=== PATIENT | female | born 1950 | race Caucasian/White ===

== ENCOUNTER 2016-12-01 23:06 | Emergency (ER) | payer MEDICARE, MEDICAID ==
[~2016-12-01] VITALS: Ht 160 cm; Wt 63.5 kg
[~2016-12-01 23:06] MED LIST: AKWASOL OU; ASPI81TA85 PO; ASPI81TAEC PO; BETA2500 PO; CALC600T28 PO; CALCTAB41 PO; COMBAER6 INH; DEPA1TAB3 PO; DEPA500T2 PO; DESYREL; DEXI30CA PO; ERGO500014 PO; HYDR25TAB PO; ICAPCAP PO; LASI20TA PO; LEVO125T3 PO; LORA10TA2 PO; MAGN400C2 PO; MELA1LIQ PO; MUCI600T34 PO; MULTTAB63 PO; NORC10TA2 PO; NORT10CA2 PO; PAME25CA PO; PENT400T47 PO; REFR0.5D8 OU; ROBA750T4 PO; SERO1TAB PO; SUCR1SUS PO; SUCR1TA PO; SYMB16INH INH; TRAZADONE PO; TRENTAL; ZOCO20TA PO; ZOLO50TA PO
[2016-12-01] MEDS ORDERED: PAME25CA PO (23:24)
[2016-12-02] MEDS ORDERED: NORCO, ANEXSIA 5/325MG TABLET (HYDROcodone/ACETAMINOPHEN) PO ONE (00:45)
[2016-12-02 02:25] VITALS: BP 180/80
--- NOTE | 2016-12-02 09:31 | REP ---
RIGHT HAND COMPLETE: 12/01/2016. Clinical history: Trauma, index finger deformity. Findings: There is dislocation of the PIP joint of the second digit in the ulnar direction. There is no visible fracture. There are minor degenerative changes at some of the IP joints, first CMC joint and some of the carpal articulations. Impression: 1. Dislocation PIP joint with the middle phalanx dislocated in an ulnar direction with the peripheral margin of the proximal phalanx articulating with the radial aspect of the middle phalanx articular surface. No visible fracture. Signed by Michel Hernandez MD 12/02/2016 10:52 A
--- NOTE | 2016-12-02 09:33 | REP ---
RIGHT FINGER SERIES: 12/02/2016. Clinical history: Dislocation PIP joint 2nd digit, evaluate reduction. Findings: Four views of the hand with attention to the second digit shows that the dislocated PIP joint is reduced. There is no visible fracture or avulsion. There is soft tissue swelling around that PIP joint. No other interval change. Signed by Michel Hernandez MD 12/02/2016 10:52 A
== END 2016-12-02 02:29 | disposition home or self-care (01) ==
LOC: EDBD 23:06 → M ED 23:16
DX: S63.280A Dislocation of proximal interphalangeal joint of right index finger, initial encounter (principal); W19.XXXA Unspecified fall, initial encounter; Y92.89 Other specified places as the place of occurrence of the external cause; Y93.89 Activity, other specified; Y99.8 Other external cause status; I10 Essential (primary) hypertension; J44.9 Chronic obstructive pulmonary disease, unspecified; E03.9 Hypothyroidism, unspecified; E78.5 Hyperlipidemia, unspecified; K21.9 Gastro-esophageal reflux disease without esophagitis; G43.909 Migraine, unspecified, not intractable, without status migrainosus; Z88.5 Allergy status to narcotic agent; Z79.899 Other long term (current) drug therapy; Z79.82 Long term (current) use of aspirin; Z79.51 Long term (current) use of inhaled steroids

== ENCOUNTER 2016-12-19 08:43 | Outpatient (RCR) | payer MEDICARE, MEDICAID ==
[2016-12-21] MEDS ORDERED: LYRI100C10 PO (11:10)
[2016-12-21] MEDS ORDERED: COMBAER6 INH (11:10)
[2016-12-21] MEDS ORDERED: ALL10TAB27 PO (11:10)
[2016-12-21] MEDS ORDERED: HYDR12.55 PO (11:10)
[2016-12-21] MEDS ORDERED: DEXI60CA PO (11:10)
[2016-12-21] MEDS ORDERED: PERC5TAB6 PO (13:13)
== END 2016-12-23 ==
LOC: M OT 08:43
PROVIDERS: ATTEND Physician Assistant
DX: Z51.89 Encounter for other specified aftercare (principal); S63.280D Dislocation of proximal interphalangeal joint of right index finger, subsequent encounter; X58.XXXD Exposure to other specified factors, subsequent encounter; Y92.9 Unspecified place or not applicable; Y93.9 Activity, unspecified; Y99.9 Unspecified external cause status
CPT/HCPCS: 97165; G8984; G8985

== ENCOUNTER 2016-12-21 10:56 | Emergency (ER) | payer MEDICARE, MEDICAID ==
[~2016-12-21] VITALS: Ht 160 cm; Wt 63.5 kg
[2016-12-21] MEDS ORDERED: DEXI60CA PO (11:10)
[2016-12-21] MEDS ORDERED: COMBAER6 INH (11:10)
[2016-12-21] MEDS ORDERED: LYRI100C10 PO (11:10)
[2016-12-21] MEDS ORDERED: HYDR12.55 PO (11:10)
[2016-12-21] MEDS ORDERED: ALL10TAB27 PO (11:10)
--- NOTE | 2016-12-21 12:45 | REP ---
LEFT RIB SERIES: Four views of the left ribs are performed. There are nondisplaced fractures of the left 5th, 8th, and 9th ribs. No other rib fracture or bone lesion is seen. An accompanying view of the chest demonstrates no acute infiltrate or pneumothorax. IMPRESSION: Nondisplaced fractures left 5th, 8th, and 9th ribs. Signed by Stephen Hill MD 12/21/2016 04:39 P
[2016-12-21] MEDS ORDERED: PERC5TAB6 PO (13:13)
[2016-12-21 13:33] VITALS: BP 134/62
== END 2016-12-21 13:37 | disposition home or self-care (01) ==
LOC: M ED 12:04
DX: S22.42XA Multiple fractures of ribs, left side, initial encounter for closed fracture (principal); Y04.8XXA Assault by other bodily force, initial encounter; Y92.89 Other specified places as the place of occurrence of the external cause; Y93.89 Activity, other specified; Y99.8 Other external cause status; I10 Essential (primary) hypertension; Z88.5 Allergy status to narcotic agent; Z79.899 Other long term (current) drug therapy; Z79.82 Long term (current) use of aspirin; Z79.51 Long term (current) use of inhaled steroids

== ENCOUNTER → 2017-01-23 | Outpatient (RCR) | payer MEDICARE, MEDICAID ==
[~2017-01-23] MED LIST changes: +ALL10TAB27 PO; +DEXI60CA PO; +HYDR12.55 PO; +LYRI100C10 PO; +PERC5TAB6 PO
== END ==
LOC: M OT 12-24 08:40
PROVIDERS: ATTEND Physician Assistant
DX: Z51.89 Encounter for other specified aftercare (principal); Z47.89 Encounter for other orthopedic aftercare; S63.280D Dislocation of proximal interphalangeal joint of right index finger, subsequent encounter; X58.XXXD Exposure to other specified factors, subsequent encounter; Y92.9 Unspecified place or not applicable; Y93.9 Activity, unspecified; Y99.9 Unspecified external cause status
CPT/HCPCS: 97110; 97140; G8981; G8982

== ENCOUNTER 2017-02-06 08:09 | Outpatient (RCR) | payer MEDICARE, MEDICAID ==
[~2017-02-06 08:09] MED LIST changes: -DEXI30CA PO; +DEXI30CA2 PO; -DEXI60CA PO; +DEXI60CA2 PO; -LEVO125T3 PO; +LEVO125T4 PO; -LYRI100C10 PO; -MUCI600T34 PO; +MUCI600T37 PO; -NORC10TA2 PO; +NORC10TA21 PO; +PERC5TAB12 PO; -PERC5TAB6 PO; +PREG100CA PO
[2017-05-07] MEDS ORDERED: REFR0.5D8 OU (13:47)
[2017-05-07] MEDS ORDERED: HYDR25TAB PO (13:47)
[2017-05-07] MEDS ORDERED: OXYC1TAB23 PO (14:07)
== END 2017-02-22 | disposition home or self-care (01) ==
LOC: M OT 08:09
PROVIDERS: ATTEND Physician Assistant
DX: Z51.89 Encounter for other specified aftercare (principal); S63.280D Dislocation of proximal interphalangeal joint of right index finger, subsequent encounter; X58.XXXD Exposure to other specified factors, subsequent encounter; Y92.9 Unspecified place or not applicable; Y93.9 Activity, unspecified; Y99.9 Unspecified external cause status

== ENCOUNTER 2017-02-06 09:15 | Emergency (ER) | payer MEDICARE, MEDICAID ==
[~2017-02-06] VITALS: Ht 160 cm; Wt 67.9 kg
[~2017-02-06 09:15] MED LIST changes: +DEXI30CA PO; -DEXI30CA2 PO; +DEXI60CA PO; -DEXI60CA2 PO; +LEVO125T3 PO; -LEVO125T4 PO; +LYRI100C10 PO; +MUCI600T34 PO; -MUCI600T37 PO; +NORC10TA2 PO; -NORC10TA21 PO; -PERC5TAB12 PO; +PERC5TAB6 PO; -PREG100CA PO
[2017-02-06] MEDS ORDERED: NORCO, ANEXSIA 5/325MG TABLET (HYDROcodone/ACETAMINOPHEN) PO ONE (10:15)
[2017-02-06 10:46] VITALS: BP 138/72
== END 2017-02-06 10:47 | disposition home or self-care (01) ==
LOC: M ED 10:20
DX: K02.9 Dental caries, unspecified (principal); K08.89 Other specified disorders of teeth and supporting structures; I10 Essential (primary) hypertension; E03.9 Hypothyroidism, unspecified; J45.909 Unspecified asthma, uncomplicated; E78.00 Pure hypercholesterolemia, unspecified; Z79.899 Other long term (current) drug therapy; Z79.82 Long term (current) use of aspirin; Z79.51 Long term (current) use of inhaled steroids; Z88.5 Allergy status to narcotic agent

== ENCOUNTER 2017-03-19 09:45 | Outpatient (RCR) | payer MEDICARE, MEDICAID ==
[~2017-03-19 09:45] MED LIST changes: -DEXI30CA PO; +DEXI30CA2 PO; -DEXI60CA PO; +DEXI60CA2 PO; -LEVO125T3 PO; +LEVO125T4 PO; -LYRI100C10 PO; -MUCI600T34 PO; +MUCI600T37 PO; -NORC10TA2 PO; +NORC10TA21 PO; +PERC5TAB12 PO; -PERC5TAB6 PO; +PREG100CA PO
[2017-05-07] MEDS ORDERED: REFR0.5D8 OU (13:47)
[2017-05-07] MEDS ORDERED: HYDR25TAB PO (13:47)
[2017-05-07] MEDS ORDERED: OXYC1TAB23 PO (14:07)
== END 2017-03-25 ==
LOC: M OT 09:45
PROVIDERS: ATTEND Physician Assistant
DX: Z51.89 Encounter for other specified aftercare (principal); S63.280D Dislocation of proximal interphalangeal joint of right index finger, subsequent encounter; X58.XXXD Exposure to other specified factors, subsequent encounter; Y92.9 Unspecified place or not applicable; Y93.9 Activity, unspecified; Y99.9 Unspecified external cause status
CPT/HCPCS: 97168; G8984; G8985

== ENCOUNTER → 2017-04-08 | Outpatient (CLI) | payer MEDICARE, MEDICAID ==
[~2017-04-08] MED LIST changes: +AZIT-12 PO; +OXYC1TAB23 PO; +ZONI100C2 PO
--- NOTE | 2017-04-08 10:51 | REPMRS ---
Patient History The patient states she had a clinical breast exam in 03/2017. Patient is postmenopausal. Family history of breast cancer in niece. Digital Woman Screen Mammo: April 08, 2017 - Exam #: [id number] Bilateral CC and MLO view(s) were taken. Technologist: Cathleen Augustin, Technologist FINDINGS: There are scattered fibroglandular densities. There has been no change in the appearance of the mammogram from the prior studies. There is a mild amount of residual fibroglandular tissue which is fairly symmetric. There is no interval development of dominant mass, architectural distortion, or clustered microcalcification suggestive of malignancy. ASSESSMENT: BI-RADS/ACR category 1 mammogram. Negative. Recommendation Routine screening mammogram in 1 year (for women over age 40). This mammogram was interpreted with the aid of an FDA-approved computer-aided dectection system. Electronically Signed By: Stephen Hill MD 04/08/17 [id number]
== END ==
LOC: M WHC 09:25
PROVIDERS: ATTEND Nurse Practitioner Family
DX: Z12.31 Encounter for screening mammogram for malignant neoplasm of breast (principal); Z78.0 Asymptomatic menopausal state; Z12.4 Encounter for screening for malignant neoplasm of cervix; Z12.12 Encounter for screening for malignant neoplasm of rectum; R35.0 Frequency of micturition
CPT/HCPCS: 81002; 82270; 87088; 87186; G0101; G0123; G0202

== ENCOUNTER → 2017-04-08 | Outpatient (REF) | payer MEDICARE, MEDICAID ==
[~2017-04-08] MED LIST changes: -AZIT-12 PO; -ZONI100C2 PO
== END ==
LOC: M SFHCWAGY 10:19
PROVIDERS: ATTEND Nurse Practitioner Family
DX: Z01.419 Encounter for gynecological examination (general) (routine) without abnormal findings (principal); R35.0 Frequency of micturition

== ENCOUNTER 2017-04-09 08:40 | Outpatient (RCR) | payer MEDICARE, MEDICAID ==
[~2017-04-09 08:40] MED LIST changes: -OXYC1TAB23 PO
[2017-05-07] MEDS ORDERED: REFR0.5D8 OU (13:47)
[2017-05-07] MEDS ORDERED: HYDR25TAB PO (13:47)
[2017-05-07] MEDS ORDERED: OXYC1TAB23 PO (14:07)
[2017-07-04] MEDS ORDERED: ZONI100C2 PO (16:00)
[2017-07-04] MEDS ORDERED: AZIT-12 PO (18:47)
== END 2017-04-25 ==
LOC: M OT 08:40
PROVIDERS: ATTEND Physician Assistant
DX: Z51.89 Encounter for other specified aftercare (principal); S63.280D Dislocation of proximal interphalangeal joint of right index finger, subsequent encounter; X58.XXXD Exposure to other specified factors, subsequent encounter; Y92.9 Unspecified place or not applicable; Y93.9 Activity, unspecified; Y99.9 Unspecified external cause status
CPT/HCPCS: 97018; 97110; 97140; G8984; G8985; G8986

== ENCOUNTER → 2017-05-06 | Outpatient (CLI) | payer MEDICARE, MEDICAID ==
[~2017-05-06] MED LIST changes: +AZIT-12 PO; +OXYC1TAB23 PO; +ZONI100C2 PO
--- NOTE | 2017-05-06 12:00 | REP ---
MRI LUMBAR SPINE WITHOUT CONTRAST: 05/06/2017. COMPARISON: 06/30/2013, x-ray 08/28/2012. CLINICAL HISTORY: Low back pain with bilateral radicular symptoms and numbness both feet. TECHNIQUE: Axial T1 and T2 sequences with sagittal T1, T2 and STIR sequences provided. FINDINGS: The normal sagittal lordosis is slightly reduced as on the previous study. Disc space heights are slightly reduced and there is decreased disc water signal from L1-2 through L5-S1 as before. Only the L5-S1 level is spared in disc height. Lower thoracic levels maintain their disc heights. All vertebral body heights are maintained and only marrow signal abnormalities discogenic endplate change at L2-3 anteriorly and L3-4, minimally anteriorly. The conus terminates at L1-2 as before, T10-11, T11-12, T12-L1 disc bulges without spinal or foraminal stenosis At L1-2, mild disc bulge without spinal or foraminal stenosis. At L2-3, there is also mild broad-based disc bulge seen extending into the foramina but not causing central canal stenosis or foraminal stenosis At L3-L4, there is slight flattening of the ventral thecal sac and minimal disc bulge without spinal or foraminal stenosis. At L4-L5, broad-based disc bulge flattening ventral thecal sac. There is hypertrophic facet change. The central canal shows an adequate cross-sectional area and I do not see nerve root compression for those L4 nerve roots on either side. At L5-S1, there is a mild broad-based disc bulge with small central disc protrusion which abuts the thecal sac but does not abut or displace the S1 nerve roots in the central canal. The foramina shows the L5 roots without compression. IMPRESSION: 1. Diffuse disc bulges at L2-3 through L4-5 with mild impression on the thecal sac but no spinal or foraminal stenosis. 2. Disc bulge with small central disc protrusion and L5-S1 abutting the thecal sac but not causing some central canal stenosis or significant foraminal encroachment. Stable exam with no new findings. Signed by Michel Hernandez MD 05/06/2017 03:50 P
== END ==
LOC: M PLARAD 08:08
PROVIDERS: ATTEND Nurse Practitioner Family
DX: M70.60 Trochanteric bursitis, unspecified hip (principal); M79.1 Myalgia; M51.26 Other intervertebral disc displacement, lumbar region; M54.16 Radiculopathy, lumbar region; M46.1 Sacroiliitis, not elsewhere classified; M47.817 Spondylosis without myelopathy or radiculopathy, lumbosacral region; M51.36 Other intervertebral disc degeneration, lumbar region; Y93.9 Activity, unspecified

== ENCOUNTER 2017-05-13 12:30 | Outpatient (CLI) | payer MEDICARE, MEDICAID ==
[~2017-05-13] VITALS: Ht 160 cm; Wt 68.0 kg
[~2017-05-13 12:30] MED LIST changes: -AZIT-12 PO; +NS 1,000 ML IV ONE; -ZONI100C2 PO
[2017-05-13] MEDS ORDERED: PROPOFOL 200 MG/20 ML VIAL As Ordered ONE (14:13)
[2017-05-13] MEDS ORDERED: LIDOCAINE 2% INJ 100 MG/5 ML SDV (FOR ANES.) As Ordered ONE (14:13)
--- NOTE | 2017-05-13 14:26 | ROOR ---
Patient Name: Jigna Oates Procedure Date: 05/13/2017 1:53 PM Date of : 1950 Age: 67 [facility] Gender: Female Note Status: Finalized Procedure: Total Colonoscopy to Cecum Indications: High risk colon cancer surveillance: Personal history of colonic polyps, Last colonoscopy: 2014 Providers: Enrrique Case MD Referring MD: NELLY CHILDS NP Requesting Provider: Medicines: Monitored Anesthesia Care Complications: No immediate complications. Procedure: Pre-Anesthesia Assessment: - The heart rate, respiratory rate, oxygen saturations, blood pressure, adequacy of pulmonary ventilation, and response to care were monitored throughout the procedure. The Colonoscope was introduced through the anus and advanced to the cecum, identified by appendiceal orifice and ileocecal valve. The colonoscopy was performed without difficulty. The patient tolerated the procedure well. The quality of the bowel preparation was excellent. Findings: The perianal and digital rectal examinations were normal. Non-bleeding internal hemorrhoids were found during retroflexion. The hemorrhoids were small and Grade I (internal hemorrhoids that do not prolapse). No other significant abnormalities were identified in a careful examination of the remainder of the colon. The exam was otherwise without abnormality on direct and retroflexion views. Impression: - Non-bleeding internal hemorrhoids. - The examination was otherwise normal on direct and retroflexion views. - No specimens collected. - The exam was otherwise normal to the cecum. Recommendation: - Patient has a contact number available for emergencies. The signs and symptoms of potential delayed complications were discussed with the patient. Return to normal activities tomorrow. Written discharge instructions were provided to the patient. - High fiber diet. - Discharge patient to home. - Continue present medications. - Repeat colonoscopy in 5 years for surveillance. - Return to referring physician. - The findings and recommendations were discussed with the patient's family. Enrrique Case MD Enrrique Case MD 05/13/2017 2:26:18 PM This report has been signed electronically. Number of Addenda: 0 Note Initiated On: 05/13/2017 1:53 PM Estimated Blood Loss: Estimated blood loss: none.
[2017-05-13 15:08] VITALS: BP 139/76
[2017-07-04] MEDS ORDERED: ZONI100C2 PO (16:00)
[2017-07-04] MEDS ORDERED: AZIT-12 PO (18:47)
== END 2017-05-13 15:16 | disposition home or self-care (01) ==
LOC: M OPP 12:30
PROVIDERS: ATTEND Internal Medicine Gastroenterology
DX: Z12.11 Encounter for screening for malignant neoplasm of colon (principal); Z86.010 Personal history of colon polyps; K64.0 First degree hemorrhoids; I10 Essential (primary) hypertension; E78.5 Hyperlipidemia, unspecified; E03.9 Hypothyroidism, unspecified; R63.4 Abnormal weight loss; R10.11 Right upper quadrant pain; R12 Heartburn; M19.90 Unspecified osteoarthritis, unspecified site; M81.0 Age-related osteoporosis without current pathological fracture; F41.9 Anxiety disorder, unspecified; F32.9 Major depressive disorder, single episode, unspecified; G43.909 Migraine, unspecified, not intractable, without status migrainosus; Z78.0 Asymptomatic menopausal state; J45.909 Unspecified asthma, uncomplicated; K80.20 Calculus of gallbladder without cholecystitis without obstruction; Z87.440 Personal history of urinary (tract) infections; Z88.8 Allergy status to other drugs, medicaments and biological substances; Z79.82 Long term (current) use of aspirin; Z79.899 Other long term (current) drug therapy

== ENCOUNTER 2017-09-04 07:40 | Outpatient (CLI) | payer MEDICARE, MEDICAID ==
[2017-09-04] MEDS: ZOLEDRONIC ACID 5 MG in APPROPRIATE DILUENT 1 EA IV (08:08)
== END 2017-09-04 08:45 | disposition home or self-care (01) ==
LOC: M INFU 07:40
DX: M80.00XA Age-related osteoporosis with current pathological fracture, unspecified site, initial encounter for fracture (principal); Z88.5 Allergy status to narcotic agent; Z79.899 Other long term (current) drug therapy; Z79.82 Long term (current) use of aspirin
CPT/HCPCS: 96365

== ENCOUNTER → 2018-01-07 | Outpatient (CLI) | payer MEDICARE, MEDICAID ==
[~2018-01-07] MED LIST changes: -AKWASOL OU; -ALL10TAB27 PO; -ASPI81TA85 PO; -ASPI81TAEC PO; -BETA2500 PO; -CALC600T28 PO; -CALCTAB41 PO; -COMBAER6 INH; -DEPA1TAB3 PO; -DEPA500T2 PO; -DESYREL; -DEXI30CA2 PO; -DEXI60CA2 PO; -ERGO500014 PO; -HYDR12.55 PO; -HYDR25TAB PO; -ICAPCAP PO; -LASI20TA PO; -LEVO125T4 PO; -LORA10TA2 PO; -MAGN400C2 PO; -MELA1LIQ PO; +METHACHOLINE KIT (J7674) INH; -MUCI600T37 PO; -MULTTAB63 PO; -NORC10TA21 PO; -NORT10CA2 PO; -NS 1,000 ML IV ONE; -OXYC1TAB23 PO; -PAME25CA PO; -PENT400T47 PO; -PERC5TAB12 PO; -PREG100CA PO; -REFR0.5D8 OU; -ROBA750T4 PO; -SERO1TAB PO; -SUCR1SUS PO; -SUCR1TA PO; -SYMB16INH INH; -TRAZADONE PO; -TRENTAL; -ZOCO20TA PO; -ZOLO50TA PO
== END ==
LOC: M CARPUL 12:25
DX: R06.02 Shortness of breath (principal)
CPT/HCPCS: J7674

== ENCOUNTER 2018-03-29 10:27 | Emergency (ER) | payer MEDICARE, MEDICAID ==
[2018-03-29 12:39] LABS: BASO % 0.6 % (0.0-1.0); EOS # 0.2 10^3/uL (0.0-0.50); EOS % 3.5 % (0.0-3.0); HEMOGLOBIN 10.8 g/dl (12.0-15.5); IMMATURE GRANULOCYTE % 0.4 % (0-3.0); LYMPH # 1.7 10^3/uL (1.5-4.5); LYMPH % 32.6 % (24.0-44.0); MEAN CORPUSCULAR HEMOGLOBIN 23.4 pg (27.0-33.0); MEAN CORPUSCULAR HGB CONC 30.9 g/dl (32.0-36.5); MEAN CORPUSCULAR VOLUME 75.9 fl (80.0-96.0); MONO # 0.4 10^3/uL (0.0-0.8); MONO % 8.2 % (0.0-5.0); NEUTROPHILS # 2.8 10^3/uL (1.8-7.7); NEUTROPHILS % 54.7 % (36.0-66.0); PLATELET COUNT, AUTOMATED 259 10^3/uL (150-450); RED BLOOD COUNT 4.61 10^6/uL (4.00-5.40); RED CELL DISTRIBUTION WIDTH 18.4 % (11.5-14.5); WHITE BLOOD COUNT 5.1 10^3/uL (4.0-10.0)
[2018-03-29 13:09] LABS: ANION GAP 6 MEQ/L (8-16); BLOOD UREA NITROGEN 15 MG/DL (7-18); CALCIUM LEVEL 8.6 MG/DL (8.8-10.2); CARBON DIOXIDE LEVEL 26 MEQ/L (21-32); CHLORIDE LEVEL 112 MEQ/L (98-107); CREATININE FOR GFR 0.81 MG/DL (0.55-1.30); FERRITIN 15 NG/ML (8-252); GLOMERULAR FILTRATION RATE > 60.0 (>45); GLUCOSE, FASTING 86 MG/DL (70-100); IRON (FE) 33 UG/DL (50-170); PERCENT SATURATION 8.5 % (13.2-45.0); SODIUM LEVEL 144 MEQ/L (136-145); THYROID STIMULATING HORMONE 0.164 uIU/ML (0.358-3.740); THYROXINE (T4) 14.6 UG/DL (4.5-12.0); TOTAL IRON BINDING CAPACITY 389 UG/DL (250-450)
[2018-03-29] MEDS: CLINDAMYCIN 150 MG CAP PO (15:12)
[2018-03-29] MEDS: PERCOCET 5MG/325MG TAB PO (15:12)
== END 2018-03-29 15:17 | disposition home or self-care (01) ==
LOC: M ED 10:27
DX: K04.7 Periapical abscess without sinus (principal); K02.9 Dental caries, unspecified; I10 Essential (primary) hypertension; D50.9 Iron deficiency anemia, unspecified; E83.51 Hypocalcemia; J44.9 Chronic obstructive pulmonary disease, unspecified; E03.9 Hypothyroidism, unspecified; K21.9 Gastro-esophageal reflux disease without esophagitis; G43.909 Migraine, unspecified, not intractable, without status migrainosus; E78.5 Hyperlipidemia, unspecified; R01.1 Cardiac murmur, unspecified; Z79.899 Other long term (current) drug therapy; Z79.82 Long term (current) use of aspirin; Z79.890 Hormone replacement therapy; Z88.5 Allergy status to narcotic agent
CPT/HCPCS: 93005

== ENCOUNTER → 2018-04-22 | Outpatient (CLI) | payer MEDICARE, MEDICAID | LOC: M RAD 12:12 | DX: M79.604 Pain in right leg (principal); M79.605 Pain in left leg; I70.203 Unspecified atherosclerosis of native arteries of extremities, bilateral legs | CPT/HCPCS: 93925 ==

== ENCOUNTER 2018-04-29 10:24 | Day surgery (SDC) | payer MEDICARE, MEDICAID ==
[2018-04-29] MEDS: NS 1,000 ML IV (10:55)
[2018-04-29] MEDS ORDERED: PROPOFOL 200 MG/20 ML VIAL As Ordered (12:18)
[2018-04-29] MEDS ORDERED: LIDOCAINE 2% INJ 100 MG/5 ML SDV (FOR ANES.) As Ordered (12:41)
== END 2018-04-29 13:48 | disposition home or self-care (01) ==
LOC: M OPP 10:24
DX: K44.9 Diaphragmatic hernia without obstruction or gangrene (principal); D50.9 Iron deficiency anemia, unspecified; R13.10 Dysphagia, unspecified; I10 Essential (primary) hypertension; E78.00 Pure hypercholesterolemia, unspecified; E03.9 Hypothyroidism, unspecified; K21.9 Gastro-esophageal reflux disease without esophagitis; M54.5 Low back pain; M81.0 Age-related osteoporosis without current pathological fracture; G43.909 Migraine, unspecified, not intractable, without status migrainosus; J45.909 Unspecified asthma, uncomplicated; F32.9 Major depressive disorder, single episode, unspecified; Z79.82 Long term (current) use of aspirin; Z79.899 Other long term (current) drug therapy; Z88.8 Allergy status to other drugs, medicaments and biological substances; Z78.0 Asymptomatic menopausal state; Z87.440 Personal history of urinary (tract) infections; Z90.49 Acquired absence of other specified parts of digestive tract; Z87.19 Personal history of other diseases of the digestive system
CPT/HCPCS: 43239

== ENCOUNTER → 2018-05-14 | Outpatient (CLI) | payer MEDICARE, MEDICAID | LOC: M PAIN 13:30 | DX: M47.897 Other spondylosis, lumbosacral region (principal); E03.9 Hypothyroidism, unspecified; F32.9 Major depressive disorder, single episode, unspecified; G43.909 Migraine, unspecified, not intractable, without status migrainosus; E78.00 Pure hypercholesterolemia, unspecified; K21.9 Gastro-esophageal reflux disease without esophagitis; J44.9 Chronic obstructive pulmonary disease, unspecified; I34.0 Nonrheumatic mitral (valve) insufficiency; Z79.82 Long term (current) use of aspirin; Z79.891 Long term (current) use of opiate analgesic; Z79.899 Other long term (current) drug therapy; Z88.8 Allergy status to other drugs, medicaments and biological substances | CPT/HCPCS: G0463 ==

== ENCOUNTER 2018-06-04 15:57 | Emergency (ER) | payer MEDICARE, MEDICAID ==
[2018-06-04] MEDS: NORCO, ANEXSIA 5/325MG TABLET (HYDROcodone/ACETAMINOPHEN) PO (17:44)
== END 2018-06-04 18:28 | disposition home or self-care (01) ==
LOC: M ED 15:57
DX: S83.92XA Sprain of unspecified site of left knee, initial encounter (principal); W01.0XXA Fall on same level from slipping, tripping and stumbling without subsequent striking against object, initial encounter; Y92.018 Other place in single-family (private) house as the place of occurrence of the external cause; M54.5 Low back pain; I10 Essential (primary) hypertension; J44.9 Chronic obstructive pulmonary disease, unspecified; E78.9 Disorder of lipoprotein metabolism, unspecified; K21.9 Gastro-esophageal reflux disease without esophagitis; M19.90 Unspecified osteoarthritis, unspecified site; Z86.73 Personal history of transient ischemic attack (TIA), and cerebral infarction without residual deficits; Z79.899 Other long term (current) drug therapy; Z79.82 Long term (current) use of aspirin; Z79.890 Hormone replacement therapy; Z88.5 Allergy status to narcotic agent
CPT/HCPCS: 73564

== ENCOUNTER → 2018-06-11 | Outpatient (CLI) | payer MEDICARE, MEDICAID | LOC: M PAIN 10:15 | DX: Z53.29 Procedure and treatment not carried out because of patient's decision for other reasons (principal) ==

== ENCOUNTER → 2018-06-30 | Outpatient (REF) | payer MEDICARE, MEDICAID ==
[2018-06-30 13:42] LABS: HEMATOCRIT 40.2 % (36.0-47.0); HEMOGLOBIN 12.7 g/dl (12.0-15.5); MEAN CORPUSCULAR HEMOGLOBIN 25.6 pg (27.0-33.0); MEAN CORPUSCULAR HGB CONC 31.6 g/dl (32.0-36.5); PLATELET COUNT, AUTOMATED 143 10^3/uL (150-450); RED BLOOD COUNT 4.96 10^6/uL (4.00-5.40); RED CELL DISTRIBUTION WIDTH 17.4 % (11.5-14.5); WHITE BLOOD COUNT 5.8 10^3/uL (4.0-10.0)
[2018-06-30 14:57] LABS: ALBUMIN 3.7 GM/DL (3.2-5.2); ALBUMIN/GLOBULIN RATIO 0.97 (1.00-1.93); ALKALINE PHOSPHATASE 75 U/L (45-117); ALT/SGPT 23 U/L (12-78); ANION GAP 7 MEQ/L (8-16); AST/SGOT 22 U/L (7-37); BILIRUBIN,TOTAL 0.4 MG/DL (0.2-1.0); BLOOD UREA NITROGEN 14 MG/DL (7-18); CARBON DIOXIDE LEVEL 28 MEQ/L (21-32); CHLORIDE LEVEL 109 MEQ/L (98-107); CHOLESTEROL LEVEL 239 MG/DL (<200); CHOLESTEROL RISK RATIO 5.558 (<5); CREATININE FOR GFR 0.72 MG/DL (0.55-1.30); GLOMERULAR FILTRATION RATE > 60.0 (>45); GLUCOSE, FASTING 72 MG/DL (70-100); HDL CHOLESTEROL 43 MG/DL (>40); IRON (FE) 47 UG/DL (50-170); LDL CHOLESTEROL 164 MG/DL (<100); NON-HDL-C 196 MG/DL; PERCENT SATURATION 14.4 % (13.2-45.0); POTASSIUM SERUM 4.7 MEQ/L (3.5-5.1); SODIUM LEVEL 144 MEQ/L (136-145); TOTAL 25(OH) VITAMIN D 28.3 NG/ML (30.0-100.0); TOTAL IRON BINDING CAPACITY 327 UG/DL (250-450); TOTAL PROTEIN 7.5 GM/DL (6.4-8.2); TRIGLYCERIDES LEVEL 159 MG/DL (<150)
== END ==
LOC: M SFHCPLAZ 10:52
DX: D50.9 Iron deficiency anemia, unspecified (principal); I10 Essential (primary) hypertension; E78.5 Hyperlipidemia, unspecified; E55.9 Vitamin D deficiency, unspecified; Z23 Encounter for immunization
CPT/HCPCS: 83550

== ENCOUNTER 2018-09-10 07:15 | Outpatient (CLI) | payer MEDICARE, MEDICAID ==
[~2018-09-10] VITALS: Ht 160 cm; Wt 62.7 kg
[~2018-09-10 07:15] MED LIST changes: +AKWASOL OU; +ALL10TAB28 PO; +ASPI81TA85 PO; +ASPI81TAEC PO; +AZIT-12 PO; +BETA2500 PO; +CALC600T28 PO; +CALCTAB41 PO; +CLIN150C14 PO; +COMBAER6 INH; +DEPA1TAB3 PO; +DEPA500T2 PO; +DESYREL; +DEXI30CA2 PO; +DEXI60CA2 PO; +ENDO10TA8 PO; +ERGO500014 PO; +FERR325T3 PO; +HYDR12.55 PO; +HYDR25TAB PO; +ICAPCAP PO; +LASI20TA3 PO; +LEVO100T5 PO; +LEVO125T4 PO; +LORA-243 PO; +MAGN400C2 PO; +MECL-86 PO; +MELA1LIQ PO; -METHACHOLINE KIT (J7674) INH; +MUCI600T37 PO; +MULTTAB63 PO; +NORC10TA21 PO; +NORT10CA2 PO; +OXYC1TAB23 PO; +PAME25CA PO; +PENT400T47 PO; +PERC5TAB12 PO; +PREG100CA PO; +REFR0.5D8 OU; +ROBA750T4 PO; +SERO1TAB PO; +SUCR1SUS PO; +SUCR1TA PO; +SYMB16INH INH; +TRAZADONE PO; +TRENTAL; +ZOCO20TA PO; +ZOLO50TA PO; +ZONI100C2 PO
[2018-09-10 07:35] VITALS: BP 117/54
[2018-09-10] MEDS ORDERED: ZOLEDRONIC ACID 5 MG in APPROPRIATE DILUENT 1 EA IV ONE (08:00)
[2018-09-10] MEDS ORDERED: SYNT137T7 PO (08:08)
[2018-09-10] MEDS ORDERED: BUTR1DIS2 TOP (08:11)
[2018-09-10] MEDS ORDERED: DULO30CA PO (08:16)
[2018-09-10] MEDS ORDERED: ORPH-8 PO (08:18)
[2018-09-10] MEDS ORDERED: CETI10CH PO (08:18)
[2018-09-10 08:30] VITALS: BP 113/57
== END 2018-09-10 08:40 ==
LOC: M INFU 07:15
PROVIDERS: ATTEND Internal Medicine
DX: M81.0 Age-related osteoporosis without current pathological fracture (principal); Z88.5 Allergy status to narcotic agent
CPT/HCPCS: 96365; J3489

== ENCOUNTER → 2018-11-05 | Outpatient (CLI) | payer MEDICARE, MEDICAID ==
[~2018-11-05] MED LIST changes: +BUTR1DIS2 TOP; +CETI10CH PO; +DULO30CA PO; +ORPH-8 PO; +SYNT137T7 PO
--- NOTE | 2018-11-05 19:57 | REPMRS ---
Patient History The patient states she had a clinical breast exam in 11/11 Family history of breast cancer in niece. Digital Woman Screen Mammo: November 05, 2018 - Exam #: [id number] Bilateral CC and MLO view(s) were taken. Technologist: Luzma June, Technologist Prior study comparison: April 08, 2017, digital woman screen mammo performed at [facility]. April 10, 2011, digital bilateral screening mammo performed at [facility]. FINDINGS: There are scattered fibroglandular densities. There has been no change in the appearance of the mammogram from the prior studies. There is a mild amount of residual fibroglandular tissue which is fairly symmetric. There is no interval development of dominant mass, architectural distortion, or clustered microcalcification suggestive of malignancy. There are benign arterial calcifications noted. Large coarse benign appearing calcification is present and stable on the right. Scattered lymph nodes are seen in the right axilla. 3-D tomosynthesis shows no additional findings. No significant changes when compared with prior studies. Assessment: BI-RADS/ACR category 2 mammogram. Benign Findings. Recommendation Routine screening mammogram in 1 year (for women over age 40). This mammogram was interpreted with the aid of an FDA-approved computer-aided dectection system. A. Negative x-ray reports should not delay biopsy if a dominant or clinically suspicious mass is present. B. Four to eight percent of cancers are not identified by mammography. C. Adenosis and dense breast may obscure an underlying neoplasm. Electronically Signed By: Michel Hernandez MD 11/05/181955
== END ==
LOC: M WHC 14:31
PROVIDERS: ATTEND Nurse Practitioner Family
DX: Z12.31 Encounter for screening mammogram for malignant neoplasm of breast (principal); R92.1 Mammographic calcification found on diagnostic imaging of breast
CPT/HCPCS: 77063; 77067; G0463

== ENCOUNTER → 2018-12-01 | Outpatient (REF) | payer MEDICARE, MEDICAID ==
[~2018-12-01] MED LIST changes: -DULO30CA PO; +DULO30CA9 PO; -ERGO500014 PO; +HYDR-2541 PO; +LYRI200C PO; +NAPR500T6 PO; -NORC10TA21 PO; +NORC1TAB5 PO; -ORPH-8 PO; +ORPH100T2 PO; +ROBA500T PO; +VITA500045 PO
[2018-12-01 14:02] LABS: BLOOD UREA NITROGEN 12 MG/DL (7-18); CREATININE FOR GFR 0.81 MG/DL (0.55-1.30); GLOMERULAR FILTRATION RATE > 60.0 (>45)
== END ==
LOC: M LABDRAW1 12:44
PROVIDERS: ATTEND Physician Assistant
DX: M23.222 Derangement of posterior horn of medial meniscus due to old tear or injury, left knee (principal)

== ENCOUNTER 2018-12-04 11:14 | Emergency (ER) | payer MEDICARE, MEDICAID ==
[~2018-12-04] VITALS: Ht 160 cm; Wt 63.2 kg
[~2018-12-04 11:14] MED LIST changes: -LYRI200C PO; -NAPR500T6 PO; -ROBA500T PO
[2018-12-04] MEDS ORDERED: LYRI200C PO (11:31)
[2018-12-04] MEDS ORDERED: METHOCARBAMOL 500 MG TAB PO ONE (12:45)
[2018-12-04] MEDS ORDERED: KETOROLAC 60 MG/2 ML VIAL (J1885) IM ONE (13:00)
[2018-12-04] MEDS ORDERED: NAPR500T6 PO (13:33)
[2018-12-04] MEDS ORDERED: ROBA500T PO (13:33)
[2018-12-04 13:40] VITALS: BP 102/62
== END 2018-12-04 13:46 | disposition home or self-care (01) ==
LOC: M ED 11:14
DX: M62.830 Muscle spasm of back (principal); I10 Essential (primary) hypertension; M19.90 Unspecified osteoarthritis, unspecified site; F32.9 Major depressive disorder, single episode, unspecified; F41.9 Anxiety disorder, unspecified; E03.9 Hypothyroidism, unspecified; J44.9 Chronic obstructive pulmonary disease, unspecified; E78.5 Hyperlipidemia, unspecified; K21.9 Gastro-esophageal reflux disease without esophagitis; H35.30 Unspecified macular degeneration; Z88.5 Allergy status to narcotic agent; Z79.899 Other long term (current) drug therapy; Z79.82 Long term (current) use of aspirin; Z79.51 Long term (current) use of inhaled steroids
CPT/HCPCS: 96372; 99283; J1885

== ENCOUNTER 2019-01-10 08:24 | Emergency (ER) | payer MEDICARE, MEDICAID ==
[~2019-01-10] VITALS: Ht 160 cm; Wt 58.7 kg
[~2019-01-10 08:24] MED LIST changes: +LYRI200C PO; +NAPR500T6 PO; +ROBA500T PO
[2019-01-10] MEDS ORDERED: ATOR40TA75 (08:34)
[2019-01-10 09:19] LABS: BASO % 0.4 % (0.0-1.0); EOS # 0.3 10^3/uL (0.0-0.50); EOS % 6.1 % (0.0-3.0); HEMATOCRIT 39.6 % (36.0-47.0); HEMOGLOBIN 12.8 g/dl (12.0-15.5); LYMPH # 1.2 10^3/uL (1.5-4.5); MEAN CORPUSCULAR HEMOGLOBIN 28.4 pg (27.0-33.0); MEAN CORPUSCULAR HGB CONC 32.3 g/dl (32.0-36.5); MEAN CORPUSCULAR VOLUME 87.8 fl (80.0-96.0); MONO # 0.5 10^3/uL (0.0-0.8); MONO % 11.6 % (0.0-5.0); NEUTROPHILS # 2.6 10^3/uL (1.8-7.7); NEUTROPHILS % 55.7 % (36.0-66.0); PLATELET COUNT, AUTOMATED 171 10^3/uL (150-450); RED BLOOD COUNT 4.51 10^6/uL (4.00-5.40); WHITE BLOOD COUNT 4.6 10^3/uL (4.0-10.0)
[2019-01-10 09:31] LABS: INR 0.99; PROTHROMBIN TIME 13.2 SECONDS (12.1-14.4)
--- NOTE | 2019-01-10 09:41 | REP ---
REASON: Dizziness. COMPARISON: Multiple, the latest two view exam 06/24/2015 and frontal view exam 12/21/2016. There is a subtle right upper lobe patchy opacity. The cardiomediastinal silhouette is unchanged. The heart is not enlarged. Pleural angles are sharp. There is no change in the osseous structures. IMPRESSION: Possible early right upper lobe pneumonia. Electronically Signed by Lupillo Lyons DO 01/10/2019 10:33 A
[2019-01-10 09:48] LABS: BLOOD UREA NITROGEN 22 MG/DL (7-18); CALCIUM LEVEL 8.9 MG/DL (8.8-10.2); CARBON DIOXIDE LEVEL 28 MEQ/L (21-32); CHLORIDE LEVEL 109 MEQ/L (98-107); CPK CREATINE PHOSPHOKINASE 83 U/L (26-192); FREE T4 1.55 NG/DL (0.76-1.46); GLOMERULAR FILTRATION RATE > 60.0 (>45); GLUCOSE, FASTING 94 MG/DL (70-100); MAGNESIUM LEVEL 1.9 MG/DL (1.8-2.4); MB/CK RELATIVE INDEX 1.93 (< OR =4); SODIUM LEVEL 142 MEQ/L (136-145); THYROID STIMULATING HORMONE 0.158 uIU/ML (0.358-3.740); TROPONIN I < 0.02 NG/ML (< 0.10)
[2019-01-10 10:00] VITALS: BP 119/69
[2019-01-10] MEDS ORDERED: AZIT-12 PO (10:05)
[2019-01-10] MEDS ORDERED: AZITHROMYCIN 250 MG TAB PO ONE (10:15)
--- NOTE | 2019-01-10 17:54 | ECGEPIP ---
Stationary ECG Study [facility] - ED Test Date: 2019-01-10 Pat Name: ADAM SILVERMAN Department: Room: - Gender: F [employer] Operator: CHINSKY : 1950 Requested By: MIRIAM Wood Order Number: [id number] Reading MD: Alannah Khan Measurements Intervals [place] Rate: 59 P: 21 ME: 170 QRS: 17 QRSD: 91 T: 50 QT: 381 QTc: 378 Interpretive Statements SINUS BRADYCARDIA PRWP LOW VOLTAGE LIMB NSTTW ABNORMALITY SIMILAR 03/29/18 Electronically Signed On 01-10-2019 17:54:13 EDT by Alannah Khan
--- NOTE | 2019-01-13 14:40 | ED PDOC ---
Post-Departure Follow-Up santos florentino faxed formal report of cxr for fu Foster Bermudez MD January 13, 2019 14:40
== END 2019-01-10 10:14 | disposition home or self-care (01) ==
LOC: M ED 08:24
DX: K62.5 Hemorrhage of anus and rectum (principal); J18.9 Pneumonia, unspecified organism; R42 Dizziness and giddiness; R53.1 Weakness; I10 Essential (primary) hypertension; E78.9 Disorder of lipoprotein metabolism, unspecified; K21.9 Gastro-esophageal reflux disease without esophagitis; J45.909 Unspecified asthma, uncomplicated; J44.9 Chronic obstructive pulmonary disease, unspecified; D64.9 Anemia, unspecified; G43.909 Migraine, unspecified, not intractable, without status migrainosus; M81.0 Age-related osteoporosis without current pathological fracture; F41.9 Anxiety disorder, unspecified; F32.9 Major depressive disorder, single episode, unspecified; H35.30 Unspecified macular degeneration; Z87.19 Personal history of other diseases of the digestive system; Z88.5 Allergy status to narcotic agent; Z79.899 Other long term (current) drug therapy; Z79.82 Long term (current) use of aspirin

== ENCOUNTER → 2019-02-05 | Outpatient (REF) | payer MEDICARE, MEDICAID ==
[~2019-02-05] MED LIST changes: +ATOR40TA75
[2019-02-05 10:54] LABS: FREE T4 1.15 NG/DL (0.76-1.46); THYROID STIMULATING HORMONE 0.374 uIU/ML (0.358-3.740)
[2019-02-05 10:55] LABS: TOTAL 25(OH) VITAMIN D 35.1 NG/ML (30.0-100.0)
== END ==
LOC: M SFHCPLAZ 07:57
PROVIDERS: ATTEND Nurse Practitioner Family
DX: E03.9 Hypothyroidism, unspecified (principal); E55.9 Vitamin D deficiency, unspecified
CPT/HCPCS: 36415; 82306; 84439; 84443; G0463

== ENCOUNTER → 2019-02-18 | Outpatient (CLI) | payer MEDICARE, MEDICAID ==
--- NOTE | 2019-02-18 13:46 | REP ---
Clinical: Follow up pneumonia/infiltrate Comparison: 01/10/2019 . Technique: PA and lateral. Findings: The mediastinum and cardiac silhouette are normal. The lung keita are clear and without acute consolidation, effusion, or pneumothorax. Previously suspected right upper lobe infiltrate resolved. The skeletal structures are intact and normal. Impression: 1. No acute cardiopulmonary process. Electronically Signed by Brian Carmona MD 02/18/2019 01:38 P
== END ==
LOC: M RAD 11:38
PROVIDERS: ATTEND Nurse Practitioner Family
DX: J18.1 Lobar pneumonia, unspecified organism (principal)

== ENCOUNTER 2019-04-09 11:09 | Emergency (ER) | payer MEDICARE, MEDICAID ==
[~2019-04-09] VITALS: Ht 160 cm; Wt 59.5 kg
[2019-04-09] MEDS ORDERED: TRIA1OI TOP (13:01)
[2019-04-09] MEDS ORDERED: AUGM875T28 PO (13:01)
[2019-04-09 13:07] VITALS: BP 141/77
== END 2019-04-09 13:11 | disposition home or self-care (01) ==
LOC: M ED 11:09
DX: K02.9 Dental caries, unspecified (principal); L30.9 Dermatitis, unspecified; G43.909 Migraine, unspecified, not intractable, without status migrainosus; I10 Essential (primary) hypertension; J45.909 Unspecified asthma, uncomplicated; J44.9 Chronic obstructive pulmonary disease, unspecified; Z87.01 Personal history of pneumonia (recurrent); K21.9 Gastro-esophageal reflux disease without esophagitis; E03.9 Hypothyroidism, unspecified; M81.0 Age-related osteoporosis without current pathological fracture; F41.9 Anxiety disorder, unspecified; F32.9 Major depressive disorder, single episode, unspecified; H35.30 Unspecified macular degeneration; E78.00 Pure hypercholesterolemia, unspecified; Z79.82 Long term (current) use of aspirin; Z79.899 Other long term (current) drug therapy; Z88.5 Allergy status to narcotic agent

== ENCOUNTER 2019-05-22 18:47 | Emergency (ER) | payer MEDICARE, MEDICAID ==
[~2019-05-22] VITALS: Ht 160 cm; Wt 59.1 kg
[~2019-05-22 18:47] MED LIST changes: -ALL10TAB28 PO; +ALL10TAB29 PO; +AUGM875T28 PO; +TRIA1OI TOP
[2019-05-22] MEDS ORDERED: CYCL10TA PO (20:22)
[2019-05-22] MEDS ORDERED: CYCLOBENZAPRINE 5MG TABLET PO ONE (20:30)
[2019-05-22] MEDS ORDERED: KETOROLAC 60 MG/2 ML VIAL (J1885) IM ONE (20:30)
[2019-05-22 20:50] VITALS: BP 138/77
== END 2019-05-22 20:51 | disposition home or self-care (01) ==
LOC: M ED 18:47
DX: M54.6 Pain in thoracic spine (principal); I10 Essential (primary) hypertension; J44.9 Chronic obstructive pulmonary disease, unspecified; E03.9 Hypothyroidism, unspecified; E78.5 Hyperlipidemia, unspecified; F33.9 Major depressive disorder, recurrent, unspecified; F41.9 Anxiety disorder, unspecified; K21.9 Gastro-esophageal reflux disease without esophagitis; Z79.899 Other long term (current) drug therapy; Z79.890 Hormone replacement therapy; Z79.82 Long term (current) use of aspirin; Z88.5 Allergy status to narcotic agent
CPT/HCPCS: 96372; 99283; J1885

== ENCOUNTER → 2019-06-11 | Outpatient (REF) | payer MEDICARE, MEDICAID ==
[~2019-06-11] MED LIST changes: +CYCL10TA PO
== END ==
LOC: M LABDRAWP 09:59
PROVIDERS: ATTEND Internal Medicine
DX: E03.9 Hypothyroidism, unspecified (principal)

== ENCOUNTER 2019-06-20 12:26 | Emergency (ER) | payer MEDICARE, MEDICAID ==
[~2019-06-20] VITALS: Ht 160 cm; Wt 64.5 kg
[2019-06-20 12:27] VITALS: BP 135/58
[2019-06-20] MEDS ORDERED: SUCR1TA PO (12:51)
[2019-06-20] MEDS ORDERED: MELO15TA28 PO (12:51)
--- NOTE | 2019-06-20 14:19 | REP ---
LEFT RIB SERIES: Four views left ribs are performed. No fracture or bone lesion is seen. An accompanying view of the chest demonstrates no acute infiltrate, pneumothorax, or pleural effusion. The heart is normal in size. IMPRESSION: No evidence of left rib fracture or bone lesion. Electronically Signed by Stephen Hill MD 06/20/2019 05:16 P
== END 2019-06-20 13:30 | disposition home or self-care (01) ==
LOC: M ED 12:26
DX: S20.212A Contusion of left front wall of thorax, initial encounter (principal); W22.8XXA Striking against or struck by other objects, initial encounter; Y92.018 Other place in single-family (private) house as the place of occurrence of the external cause; Y93.83 Activity, rough housing and horseplay; I10 Essential (primary) hypertension; J44.9 Chronic obstructive pulmonary disease, unspecified; E07.9 Disorder of thyroid, unspecified; E78.9 Disorder of lipoprotein metabolism, unspecified; F33.9 Major depressive disorder, recurrent, unspecified; K21.9 Gastro-esophageal reflux disease without esophagitis; H35.30 Unspecified macular degeneration; Z79.899 Other long term (current) drug therapy; Z79.890 Hormone replacement therapy; Z79.82 Long term (current) use of aspirin; Z88.5 Allergy status to narcotic agent

== ENCOUNTER → 2019-07-01 | Outpatient (CLI) | payer MEDICARE, MEDICAID ==
[~2019-07-01] MED LIST changes: +MELO15TA28 PO
--- NOTE | 2019-07-01 17:07 | REP ---
Two views chest: 07/01/2019. Indication: Cough. Comparison: 06/20/2019. Findings: The lungs are clear. There is no pleural effusion or pneumothorax. Patient is status post cholecystectomy. The cardiac silhouette is not enlarged. Impression: Clear lungs. Electronically Signed by Augustus Solorio DO 07/01/2019 04:59 P
== END ==
LOC: M RAD 12:14
PROVIDERS: ATTEND Nurse Practitioner Family
DX: R05 Cough (principal)
CPT/HCPCS: 71046; G0463

== ENCOUNTER → 2019-08-11 | Outpatient (CLI) | payer MEDICARE, MEDICAID ==
[~2019-08-11] MED LIST changes: -BETA2500 PO; +BETA250027 PO
[2019-08-11 18:31] LABS: HEMATOCRIT 40.5 % (36.0-47.0); HEMOGLOBIN 12.5 g/dl (12.0-15.5); MEAN CORPUSCULAR HEMOGLOBIN 27.4 pg (27.0-33.0); MEAN CORPUSCULAR HGB CONC 30.9 g/dl (32.0-36.5); MEAN CORPUSCULAR VOLUME 88.6 fl (80.0-96.0); PLATELET COUNT, AUTOMATED 228 10^3/uL (150-450); RED BLOOD COUNT 4.57 10^6/uL (4.00-5.40)
[2019-08-11 19:00] LABS: ALBUMIN 3.7 GM/DL (3.2-5.2); ALT/SGPT 23 U/L (12-78); BILIRUBIN,TOTAL 0.4 MG/DL (0.2-1.0); BLOOD UREA NITROGEN 19 MG/DL (7-18); CALCIUM LEVEL 9.3 MG/DL (8.8-10.2); CARBON DIOXIDE LEVEL 29 MEQ/L (21-32); CHLORIDE LEVEL 108 MEQ/L (98-107); CHOLESTEROL LEVEL 124 MG/DL (<200); CHOLESTEROL RISK RATIO 2.695 (<5); CREATININE FOR GFR 0.94 MG/DL (0.55-1.30); GLOMERULAR FILTRATION RATE > 60.0 (>45); GLUCOSE, FASTING 80 MG/DL (70-100); HDL CHOLESTEROL 46 MG/DL (>40); IRON (FE) 67 UG/DL (50-170); LDL CHOLESTEROL 53 MG/DL (<100); NON-HDL-C 78 MG/DL; PERCENT SATURATION 22.7 % (13.2-45.0); POTASSIUM SERUM 4.6 MEQ/L (3.5-5.1); SODIUM LEVEL 143 MEQ/L (136-145); TOTAL IRON BINDING CAPACITY 295 UG/DL (250-450); TOTAL PROTEIN 6.9 GM/DL (6.4-8.2); TRIGLYCERIDES LEVEL 124 MG/DL (<150)
[2019-08-11 19:06] LABS: TOTAL 25(OH) VITAMIN D 34.2 NG/ML (30.0-100.0)
== END ==
LOC: M PLALAB 12:33
PROVIDERS: ATTEND Nurse Practitioner Family
DX: I10 Essential (primary) hypertension (principal); E78.5 Hyperlipidemia, unspecified; E55.9 Vitamin D deficiency, unspecified; D50.9 Iron deficiency anemia, unspecified

== ENCOUNTER → 2020-01-25 | Outpatient (CLI) | payer MEDICARE, MEDICAID ==
[~2020-01-25] MED LIST changes: +CYCL-707 PO; -CYCL10TA PO; +SUCR1ORA PO; -SUCR1SUS PO; +ZONI100C17 PO; -ZONI100C2 PO
--- NOTE | 2020-01-25 13:33 | REPPI ---
REASON: Atraumatic pain. PRIORS: None. FINDINGS: There is no acute fracture, dislocation, subluxation, or joint effusion. Electronically Signed by Lupillo Lyons DO 01/25/2020 05:11 P
== END ==
LOC: M PLAIMG 10:13
PROVIDERS: ATTEND Nurse Practitioner Family
DX: M25.521 Pain in right elbow (principal)
CPT/HCPCS: 73080; G0463

== ENCOUNTER → 2020-04-08 | Outpatient (CLI) | payer MEDICARE, MEDICAID ==
[~2020-04-08] MED LIST changes: -ALL10TAB29 PO; -ASPI81TA85 PO; +ASPI81TA86 PO; +CETI-24 PO
--- NOTE | 2020-04-26 11:38 | REPMRS ---
Patient History The patient states she had a clinical breast exam in March 2020.Patient is postmenopausal. Family history of breast cancer in niece. Digital Woman Screen Mammo: April 08, 2020 - Exam #: [id number] Bilateral CC and MLO view(s) were taken. Technologist: Katheryn Gonzalez, Technologist Prior study comparison: November 05, 2018, bilateral digital woman screen mammo performed at [facility]. April 08, 2017, digital woman screen mammo performed at [facility]. April 10, 2011, digital bilateral screening mammo performed at [facility]. FINDINGS: There are scattered fibroglandular densities. The Volpara volumetric breast density category is:B. There has been no change in the appearance of the mammogram from the prior studies. There is a mild amount of scattered fibroglandular density which is fairly symmetric. There is no interval development of dominant mass, architectural distortion, or grouped microcalcification suggestive of malignancy. 3-D tomosynthesis shows no additional findings. Assessment: BI-RADS/ACR category 1 mammogram. Negative Mammogram. Recommendation Routine screening mammogram of both breasts in 1 year (for women over age 40). This patient's Lifetime Breast Cancer Risk is estimated at 4.6 %. This mammogram was interpreted with the aid of an FDA-approved computer-aided dectection system. Electronically Signed By: Lam Mena MD 04/26/20 [id number]
== END ==
LOC: M WHC 15:09
PROVIDERS: ATTEND Nurse Practitioner Family
DX: Z01.419 Encounter for gynecological examination (general) (routine) without abnormal findings (principal); Z12.31 Encounter for screening mammogram for malignant neoplasm of breast; Z78.0 Asymptomatic menopausal state; Z80.3 Family history of malignant neoplasm of breast
CPT/HCPCS: 77063; 77067; G0101

== ENCOUNTER → 2020-06-23 | Outpatient (REF) | payer MEDICARE, MEDICAID ==
[2020-06-23 17:10] LABS: BLOOD UREA NITROGEN 23 MG/DL (7-18); CREATININE FOR GFR 0.92 MG/DL (0.55-1.30); GLUCOSE, FASTING 83 MG/DL (70-100)
[2020-06-23 17:11] LABS: ALBUMIN 3.7 GM/DL (3.2-5.2); ALT/SGPT 33 U/L (12-78); BILIRUBIN,TOTAL 0.6 MG/DL (0.2-1.0); CALCIUM LEVEL 9.5 MG/DL (8.8-10.2); CARBON DIOXIDE LEVEL 27 MEQ/L (21-32); CHLORIDE LEVEL 110 MEQ/L (98-107); CHOLESTEROL LEVEL 117 MG/DL (<200); CHOLESTEROL RISK RATIO 3.441 (<5); FERRITIN 143 NG/ML (8-252); GLOMERULAR FILTRATION RATE > 60.0 (>39); HDL CHOLESTEROL 34 MG/DL (>40); LDL CHOLESTEROL 58 MG/DL (<100); NON-HDL-C 83 MG/DL; POTASSIUM SERUM 4.6 MEQ/L (3.5-5.1); SODIUM LEVEL 143 MEQ/L (136-145); TOTAL PROTEIN 7.4 GM/DL (6.4-8.2); TRIGLYCERIDES LEVEL 126 MG/DL (<150)
[2020-06-23 17:16] LABS: TOTAL 25(OH) VITAMIN D 39.5 NG/ML (30.0-100.0)
[2020-06-23 17:28] LABS: HEMATOCRIT 44.2 % (36.0-47.0); HEMOGLOBIN 14.1 g/dl (12.0-15.5); MEAN CORPUSCULAR HEMOGLOBIN 27.6 pg (27.0-33.0); MEAN CORPUSCULAR HGB CONC 31.9 g/dl (32.0-36.5); MEAN CORPUSCULAR VOLUME 86.5 fl (80.0-96.0); PLATELET COUNT, AUTOMATED 216 10^3/uL (150-450); RED BLOOD COUNT 5.11 10^6/uL (4.00-5.40); WHITE BLOOD COUNT 6.8 10^3/uL (4.0-10.0)
[2020-06-23 17:50] LABS: MALB URINE SIEMENS 13.9 MG/L; MAU/CREAT RATIO 7.9 MCG/MG (0.0-30.0)
== END ==
LOC: M SFHCPLAZ 14:29
PROVIDERS: ATTEND Nurse Practitioner Family
DX: I10 Essential (primary) hypertension (principal); E78.5 Hyperlipidemia, unspecified; D50.9 Iron deficiency anemia, unspecified; E55.9 Vitamin D deficiency, unspecified

== ENCOUNTER → 2020-08-29 | Outpatient (REF) | payer MEDICARE, MEDICAID ==
[2020-08-29 16:58] LABS: CALCIUM LEVEL 9.6 MG/DL (8.8-10.2); CREATININE FOR GFR 1.06 MG/DL (0.55-1.30); GLOMERULAR FILTRATION RATE 54.6 (>39); POTASSIUM SERUM 4.2 MEQ/L (3.5-5.1)
[2020-08-29 17:09] LABS: TOTAL 25(OH) VITAMIN D 37.4 NG/ML (30.0-100.0)
== END ==
LOC: M PLALAB 14:03
PROVIDERS: ATTEND Nurse Practitioner Family
DX: E55.9 Vitamin D deficiency, unspecified (principal); I10 Essential (primary) hypertension; Z79.899 Other long term (current) drug therapy

== ENCOUNTER → 2021-03-08 | Outpatient (CLI) | payer MEDICARE, MEDICAID ==
[~2021-03-08] MED LIST changes: +ASPI-569 PO; -ASPI81TAEC PO; -CLIN150C14 PO; +CLIN150C15 PO; +HYDR-3490 PO; -HYDR25TAB PO
[2021-03-08 14:33] LABS: ALBUMIN 3.8 GM/DL (3.2-5.2); ALT/SGPT 27 U/L (12-78); BILIRUBIN,TOTAL 0.5 MG/DL (0.2-1.0); BLOOD UREA NITROGEN 16 MG/DL (7-18); CARBON DIOXIDE LEVEL 27 MEQ/L (21-32); CHLORIDE LEVEL 111 MEQ/L (98-107); CHOLESTEROL LEVEL 116 MG/DL (<200); CHOLESTEROL RISK RATIO 2.974 (<5); CREATININE FOR GFR 0.95 MG/DL (0.55-1.30); GLOMERULAR FILTRATION RATE > 60.0 (>39); GLUCOSE, FASTING 81 MG/DL (70-100); HDL CHOLESTEROL 39 MG/DL (>40); LDL CHOLESTEROL 52 MG/DL (<100); NON-HDL-C 77 MG/DL; POTASSIUM SERUM 4.2 MEQ/L (3.5-5.1); SODIUM LEVEL 142 MEQ/L (136-145); TOTAL 25(OH) VITAMIN D 37.9 NG/ML (30.0-100.0); TOTAL PROTEIN 6.9 GM/DL (6.4-8.2); TRIGLYCERIDES LEVEL 126 MG/DL (<150)
== END ==
LOC: M PLALAB 10:47
PROVIDERS: ATTEND Nurse Practitioner Family
DX: E55.9 Vitamin D deficiency, unspecified (principal); I10 Essential (primary) hypertension; E78.5 Hyperlipidemia, unspecified
CPT/HCPCS: 36415; 80053; 80061; 82306; G0463

== ENCOUNTER → 2021-08-16 | Outpatient (REF) | payer MEDICARE, MEDICAID ==
[~2021-08-16] MED LIST changes: +ASPI-161 PO; +ATOR40TA75 PO; +BELB75MI BU; +CALCD50TA PO; +CETI-14 PO; -CLIN150C15 PO; +CLIN150C17 PO; +D31000TA2 PO; +FERR32TA PO; +HYDR-3363 PO; +MOBI4TAB PO; +PANT40TA29 PO; +SYNT125T PO
== END ==
LOC: M SFHCPLAZ 16:49
PROVIDERS: ATTEND Physician Assistant
DX: R05.9 Cough, unspecified (principal)
CPT/HCPCS: 87426; 87804; 93005; G0463; U0003

== ENCOUNTER → 2021-08-17 | Outpatient (CLI) | payer MEDICARE, MEDICAID ==
[~2021-08-17] MED LIST changes: +PERCOCET PO; +PRED10TA2 PO
[2021-08-17 17:56] LABS: BASO # 0.1 10^3/uL (0.0-0.2); EOS # 0.3 10^3/uL (0.0-0.5); EOS % 4.9 % (0.0-3.0); HEMATOCRIT 42.3 % (36.0-47.0); HEMOGLOBIN 13.5 g/dl (12.0-15.5); LYMPH # 1.8 10^3/uL (1.5-5.0); LYMPH % 35.9 % (24.0-44.0); MEAN CORPUSCULAR HEMOGLOBIN 27.8 pg (27.0-33.0); MEAN CORPUSCULAR HGB CONC 31.9 g/dl (32.0-36.5); MONO # 0.8 10^3/uL (0.0-0.8); MONO % 15.6 % (2.0-8.0); NEUTROPHILS # 2.2 10^3/uL (1.5-8.5); NEUTROPHILS % 42.4 % (36.0-66.0); PLATELET COUNT, AUTOMATED 196 10^3/uL (150-450); RED BLOOD COUNT 4.86 10^6/uL (4.00-5.40); WHITE BLOOD COUNT 5.1 10^3/uL (4.0-10.0)
[2021-08-17 18:36] LABS: ALBUMIN 3.6 GM/DL (3.2-5.2); BILIRUBIN,TOTAL 0.7 MG/DL (0.2-1.0); CALCIUM LEVEL 9.3 MG/DL (8.8-10.2); CREATININE FOR GFR 1.08 MG/DL (0.55-1.30); FREE T4 1.87 NG/DL (0.76-1.46); GLOMERULAR FILTRATION RATE 53.2 (>39); POTASSIUM SERUM 4.5 MEQ/L (3.5-5.1); THYROID STIMULATING HORMONE 0.044 uIU/ML (0.358-3.740); TOTAL PROTEIN 6.8 GM/DL (6.4-8.2)
== END ==
LOC: M PLALAB 12:13
PROVIDERS: ATTEND Physician Assistant
DX: R42 Dizziness and giddiness (principal); Z79.899 Other long term (current) drug therapy

== ENCOUNTER 2021-08-31 12:08 | Inpatient (IN) | payer MEDICARE, MEDICAID ==
[~2021-08-31] VITALS: Ht 160 cm; Wt 79.0 kg
[~2021-08-31 12:08] MED LIST changes: -ASPI-161 PO; -ATOR40TA75 PO; -BELB75MI BU; -CALCD50TA PO; -CETI-14 PO; -D31000TA2 PO; -FERR32TA PO; -HYDR-3363 PO; -MOBI4TAB PO; -PANT40TA29 PO; -PERCOCET PO; -PRED10TA2 PO; -SYNT125T PO
[2021-08-31 13:20] LABS: HEMATOCRIT 37.7 % (36.0-47.0); HEMOGLOBIN 12.6 g/dl (12.0-15.5); MEAN CORPUSCULAR HEMOGLOBIN 28.2 pg (27.0-33.0); MEAN CORPUSCULAR HGB CONC 33.4 g/dl (32.0-36.5); MEAN CORPUSCULAR VOLUME 84.3 fl (80.0-96.0); RED BLOOD COUNT 4.47 10^6/uL (4.00-5.40); WHITE BLOOD COUNT 6.2 10^3/uL (4.0-10.0)
[2021-08-31] MEDS ORDERED: ACETAMINOPHEN TAB 650MG DOSE (2X325MG) PO ONE (13:25)
[2021-08-31] MEDS ORDERED: NS 1,000 ML IV ONE (13:25)
[2021-08-31 13:47] LABS: BILIRUBIN,DIRECT 0.3 MG/DL (0.0-0.2); BILIRUBIN,TOTAL 0.6 MG/DL (0.2-1.0); CALCIUM LEVEL 7.1 MG/DL (8.8-10.2); CREATININE FOR GFR 1.92 MG/DL (0.55-1.30); FREE T4 1.95 NG/DL (0.76-1.46); GLOMERULAR FILTRATION RATE 27.4 (>39); POTASSIUM SERUM 3.5 MEQ/L (3.5-5.1); THYROID STIMULATING HORMONE 0.013 uIU/ML (0.358-3.740); TOTAL PROTEIN 5.8 GM/DL (6.4-8.2)
[2021-08-31 13:49] LABS: PLATELET COUNT, AUTOMATED 93 10^3/uL (150-450)
[2021-08-31 13:54] LABS: LYMPHOCYTES 5 % (16-44); METAMYELOCYTES 2 % (0-0); NEUTROPHILS 64 % (28-66); PLATELET ESTIMATE DECREASED (NORMAL)
[2021-08-31] MEDS ORDERED: cefTRIAXone SOD 2 GM in D5W MINI-BAG PLUS 50 ML IV ONE (14:00)
[2021-08-31] MEDS ORDERED: fentaNYL 100 MCG/2 ML INJECTION (J3010) IV ONE ×3 (14:10→16:15)
[2021-08-31 14:19] LABS: CK-MB VALUE MASS 3.3 NG/ML (<3.6); MB/CK RELATIVE INDEX 0.56 (< OR =4)
[2021-08-31] MEDS ORDERED: LIDOCAINE 1% MDV 20ML VIAL SC ONE (15:20)
[2021-08-31] MEDS ORDERED: ACETAMINOPHEN TAB 650MG DOSE (2X325MG) PO PRN (15:55)
[2021-08-31] MEDS: NS 1,000 ML IV SCH (16:15)
[2021-08-31] MEDS ORDERED: ALBUTEROL 90 MCG/ACT 8GM HFA INHALER INH PRN (16:15)
[2021-08-31 16:31] LABS: RSV AMPLIFICATION NEGATIVE (NEGATIVE)
[2021-08-31 18:10] LABS: C REACTIVE PROTEIN QUANTITATIV 6.31 MG/DL (0.00-0.30)
[2021-08-31 18:15] LABS: PROTHROMBIN TIME 15.6 SECONDS (12.7-14.5)
[2021-08-31 18:16] LABS: FIBRINOGEN 364 MG/DL (268-480); PARTIAL THROMBOPLASTIN TIME 33.3 SECONDS (25.9-37.0)
[2021-08-31 18:36] LABS: D-DIMER QUANT > 4000 ng/ml (<500)
[2021-08-31] MEDS ORDERED: propofoL 200 MG/20 ML VIAL As Ordered ONE (19:55)
[2021-08-31] MEDS ORDERED: PHENYLephrine 500MCG 5ML (100MCG/ML) SYRINGE As Ordered ONE (19:55)
[2021-08-31] MEDS ORDERED: ePHEDrine SULFATE 25 MG/5 ML(5MG/ML) SYRINGE As Ordered ONE (19:55)
[2021-08-31] MEDS ORDERED: fentaNYL 100 MCG/2 ML INJECTION (J3010) As Ordered ONE (19:55)
[2021-08-31] MEDS ORDERED: LIDOCAINE 2% 100MG/5ML SDV (FOR ANES.) As Ordered ONE (19:55)
[2021-08-31] MEDS ORDERED: MIDAZOLAM INJ 2MG/2ML VIAL (J2250 PER 1MG) As Ordered ONE (19:55)
[2021-08-31] MEDS: DOXYCYCLINE HYCLATE 100 MG in D5W MINI-BAG PLUS 100 ML IV SCH (21:00)
[2021-09-01] VITALS (7 sets, daily range): BP systolic 91–152; BP diastolic 39–67; O2SAT 97
[2021-09-01] MEDS: NS 1,000 ML IV SCH ×3 (02:15→18:22)
[2021-09-01] MEDS: cefTRIAXone SOD 1 GM in D5W MINI-BAG PLUS 50 ML IV SCH ×2 (04:00→18:22)
[2021-09-01] MEDS ORDERED: CETI-14 PO (04:47)
[2021-09-01] MEDS ORDERED: BELB75MI BU (04:47)
[2021-09-01] MEDS ORDERED: CALCD50TA PO (04:47)
[2021-09-01] MEDS ORDERED: FERR32TA PO (04:47)
[2021-09-01] MEDS ORDERED: SYNT125T PO (04:47)
[2021-09-01] MEDS ORDERED: D31000TA2 PO (04:47)
[2021-09-01] MEDS ORDERED: ASPI-161 PO (04:47)
[2021-09-01] MEDS ORDERED: ATOR40TA75 PO (04:47)
[2021-09-01] MEDS ORDERED: HYDR-3363 PO (04:47)
[2021-09-01] MEDS ORDERED: MOBI4TAB PO (04:47)
[2021-09-01] MEDS ORDERED: PANT40TA29 PO (04:47)
[2021-09-01] MEDS ORDERED: HOME MED LIST COMPLETE! XX SCH (04:50)
[2021-09-01] MEDS ORDERED: MIDAZOLAM INJ 2MG/2ML VIAL (J2250 PER 1MG) IV PRN (07:01)
[2021-09-01] MEDS ORDERED: fentaNYL 100 MCG/2 ML INJECTION (J3010) IV PRN ×3 (07:01→18:35)
[2021-09-01 07:31] LABS: HEMATOCRIT 32.3 % (36.0-47.0); HEMOGLOBIN 10.5 g/dl (12.0-15.5); MEAN CORPUSCULAR HEMOGLOBIN 27.8 pg (27.0-33.0); MEAN CORPUSCULAR HGB CONC 32.5 g/dl (32.0-36.5); MEAN CORPUSCULAR VOLUME 85.4 fl (80.0-96.0); RED BLOOD COUNT 3.78 10^6/uL (4.00-5.40); WHITE BLOOD COUNT 14.5 10^3/uL (4.0-10.0)
[2021-09-01 07:39] LABS: PLATELET COUNT, AUTOMATED 75 10^3/uL (150-450)
[2021-09-01 07:57] LABS: ALBUMIN 2.4 GM/DL (3.2-5.2); BILIRUBIN,TOTAL 0.3 MG/DL (0.2-1.0); CALCIUM LEVEL 6.4 MG/DL (8.8-10.2); CREATININE FOR GFR 1.08 MG/DL (0.55-1.30); GLOMERULAR FILTRATION RATE 53.2 (>39); MAGNESIUM LEVEL 1.7 MG/DL (1.8-2.4); POTASSIUM SERUM 3.5 MEQ/L (3.5-5.1); TOTAL PROTEIN 5.1 GM/DL (6.4-8.2)
[2021-09-01] MEDS: ENOXAPARIN 40MG/0.4ML SYRINGE (J1650 PER 10MG) SC SCH ×2 (09:00→09:12)
[2021-09-01] MEDS ORDERED: NS 1,000 ML IV ONE (09:05)
[2021-09-01] MEDS: DOXYCYCLINE HYCLATE 100 MG in D5W MINI-BAG PLUS 100 ML IV SCH ×2 (09:12→20:49)
[2021-09-01] MEDS: BARICITINIB 2MG TABLET (OLUMIANT) FOR EUA PO SCH (10:16)
[2021-09-01] MEDS: dexameTHASONE 20MG/5ML VIAL (J1100 PER 1MG) IV SCH (10:16)
[2021-09-01] MEDS ORDERED: MAG SULF 1GM/100ML (MAG RUN) 1 GM in IV 1 EA IV ONE (11:00)
[2021-09-01] MEDS ORDERED: REMDESIVIR 200 MG in NS 250 ML IV ONE (12:00)
[2021-09-01] MEDS ORDERED: dexameTHASONE 10MG/1ML VIAL PRES.FREE (J1100 PER 1MG) XX ONE (12:45)
[2021-09-01] MEDS ORDERED: ROPIvacaine 0.5% 30ML INJECTION (J2795 PER 1MG) XX ONE (12:45)
[2021-09-01] MEDS ORDERED: LIDOCAINE 1% MDV 20ML VIAL XX ONE (12:45)
[2021-09-01] MEDS ORDERED: BUPIVACAINE/EPIN 0.25% 30 ML VIAL As Ordered ONE (12:50)
[2021-09-01] MEDS ORDERED: LIDOCAINE 2% 100MG/5ML SDV (FOR ANES.) As Ordered ONE (13:50)
[2021-09-01] MEDS ORDERED: propofoL 500 MG/50 ML VIAL As Ordered ONE (13:50)
[2021-09-01] MEDS ORDERED: SODIUM CHLORIDE 0.9% INJ 10 ML SYR IV ONE (14:00)
[2021-09-01] MEDS ORDERED: ONDANSETRON 4MG/2ML VIAL As Ordered ONE (15:43)
[2021-09-01] MEDS ORDERED: LR 1,000 ML IV SCH ×2 (15:50→18:35)
[2021-09-01] MEDS ORDERED: HYDROMORPHONE HCL 0.5 MG/ 0.5 ML SYRINGE (J1170 PER 1) IV PRN ×2 (15:50→18:35)
[2021-09-01] MEDS ORDERED: ONDANSETRON 4MG/2ML VIAL IV PRN ×2 (15:50→18:35)
[2021-09-01] MEDS ORDERED: oxyCODONE 5MG TAB PO PRN ×2 (15:50→18:35)
[2021-09-01] MEDS ORDERED: ACETAMINOPHEN TAB 650MG DOSE (2X325MG) PO PRN (18:35)
[2021-09-01] MEDS ORDERED: MORPHINE 4 MG/ML 1ML VIAL/SYRINGE (J2270) IV PRN (18:40)
[2021-09-01] MEDS: LR 1,000 ML IV SCH (21:42)
[2021-09-02] VITALS (12 sets, daily range): BP systolic 97–128; BP diastolic 51–63; O2SAT 85–95
[2021-09-02] MEDS: PERCOCET 5MG/325MG TAB PO PRN ×2 (00:21→09:42)
[2021-09-02] MEDS: cefTRIAXone SOD 1 GM in D5W MINI-BAG PLUS 50 ML IV SCH ×2 (04:09→16:01)
[2021-09-02 08:00] LABS: HEMATOCRIT 33.4 % (36.0-47.0); MEAN CORPUSCULAR HEMOGLOBIN 27.6 pg (27.0-33.0); MEAN CORPUSCULAR HGB CONC 32.9 g/dl (32.0-36.5); MEAN CORPUSCULAR VOLUME 83.7 fl (80.0-96.0); RED BLOOD COUNT 3.99 10^6/uL (4.00-5.40); WHITE BLOOD COUNT 9.9 10^3/uL (4.0-10.0)
[2021-09-02 08:03] LABS: PLATELET COUNT, AUTOMATED 83 10^3/uL (150-450)
[2021-09-02 08:09] LABS: INR 1.17; PARTIAL THROMBOPLASTIN TIME 33.4 SECONDS (25.9-37.0); PROTHROMBIN TIME 15.3 SECONDS (12.7-14.5)
[2021-09-02] MEDS: DOXYCYCLINE HYCLATE 100 MG in D5W MINI-BAG PLUS 100 ML IV SCH ×3 (08:37→20:03)
[2021-09-02] MEDS: BARICITINIB 2MG TABLET (OLUMIANT) FOR EUA PO SCH ×2 (08:38→09:00)
[2021-09-02] MEDS: dexameTHASONE 20MG/5ML VIAL (J1100 PER 1MG) IV SCH ×2 (08:38→09:00)
[2021-09-02] MEDS: LR 1,000 ML IV SCH (08:39)
[2021-09-02 08:53] LABS: ALBUMIN 2.3 GM/DL (3.2-5.2); ALT/SGPT 29 U/L (12-78); BILIRUBIN,DIRECT 0.2 MG/DL (0.0-0.2); BILIRUBIN,TOTAL 0.4 MG/DL (0.2-1.0); BLOOD UREA NITROGEN 20 MG/DL (7-18); CALCIUM LEVEL 6.9 MG/DL (8.8-10.2); CARBON DIOXIDE LEVEL 19 MEQ/L (21-32); CHLORIDE LEVEL 120 MEQ/L (98-107); CREATININE FOR GFR 0.87 MG/DL (0.55-1.30); FERRITIN 918 NG/ML (8-252); GLOMERULAR FILTRATION RATE > 60.0 (>39); GLUCOSE, FASTING 129 MG/DL (70-100); LDH LACTATE DEHYDROGENASE 477 U/L (84-246); NT-PRO BNP 2118 PG/ML (<125); POTASSIUM SERUM 3.9 MEQ/L (3.5-5.1); SODIUM LEVEL 149 MEQ/L (136-145); TOTAL PROTEIN 5.7 GM/DL (6.4-8.2)
[2021-09-02] MEDS: ASPIRIN 81MG ENTERIC TABLET PO SCH (11:06)
[2021-09-02] MEDS ORDERED: REMDESIVIR 100 MG in NS 250 ML IV SCH (12:00)
[2021-09-02] MEDS ORDERED: SODIUM CHLORIDE 0.9% INJ 10 ML SYR IV SCH (13:00)
[2021-09-02 14:08] LABS: MYCOPLASMA PNEUMONIAE IgG 299 U/mL (0-99); MYCOPLASMA PNEUMONIAE IgM <770 U/mL (0-769)
[2021-09-02] MEDS: ACETAMINOPHEN TAB 650MG DOSE (2X325MG) PO PRN (16:58)
[2021-09-02] MEDS ORDERED: ONDANSETRON 4MG/2ML VIAL IV PRN (23:30)
[2021-09-03] VITALS (8 sets, daily range): BP systolic 101–133; BP diastolic 64–72; O2SAT 86–95
[2021-09-03] MEDS: cefTRIAXone SOD 1 GM in D5W MINI-BAG PLUS 50 ML IV SCH ×2 (04:23→16:54)
[2021-09-03 07:42] LABS: HEMOGLOBIN 11.3 g/dl (12.0-15.5); MEAN CORPUSCULAR HEMOGLOBIN 28.1 pg (27.0-33.0); MEAN CORPUSCULAR HGB CONC 34.2 g/dl (32.0-36.5); MEAN CORPUSCULAR VOLUME 82.1 fl (80.0-96.0); PLATELET COUNT, AUTOMATED 115 10^3/uL (150-450); RED BLOOD COUNT 4.02 10^6/uL (4.00-5.40); WHITE BLOOD COUNT 8.8 10^3/uL (4.0-10.0)
[2021-09-03 08:09] LABS: ALBUMIN 2.5 GM/DL (3.2-5.2); ALT/SGPT 31 U/L (12-78); BILIRUBIN,TOTAL 0.5 MG/DL (0.2-1.0); BLOOD UREA NITROGEN 27 MG/DL (7-18); CALCIUM LEVEL 7.4 MG/DL (8.8-10.2); CARBON DIOXIDE LEVEL 23 MEQ/L (21-32); CHLORIDE LEVEL 117 MEQ/L (98-107); CREATININE FOR GFR 0.74 MG/DL (0.55-1.30); GLOMERULAR FILTRATION RATE > 60.0 (>39); GLUCOSE, FASTING 106 MG/DL (70-100); MAGNESIUM LEVEL 2.2 MG/DL (1.8-2.4); POTASSIUM SERUM 3.3 MEQ/L (3.5-5.1); SODIUM LEVEL 149 MEQ/L (136-145)
[2021-09-03] MEDS: DOXYCYCLINE HYCLATE 100 MG in D5W MINI-BAG PLUS 100 ML IV SCH ×2 (08:22→20:35)
[2021-09-03] MEDS: ASPIRIN 81MG ENTERIC TABLET PO SCH (08:22)
[2021-09-03] MEDS: FERROUS GLUCONATE 324 MG TAB PO SCH (09:00)
[2021-09-03] MEDS: ATORVASTATIN 20 MG TAB PO SCH (09:00)
[2021-09-03] MEDS ORDERED: ISOVUE-370 76% 100ML VIAL As Ordered ONE (10:38)
[2021-09-03] MEDS ORDERED: LORazepam 2 MG/ML VIAL IV STA (11:23)
[2021-09-03] MEDS ORDERED: MELOXICAM (MOBIC) 7.5 MG TAB PO PRN (12:30)
[2021-09-03] MEDS ORDERED: POLYVINYL ALCOHOL OPHTH SOLN 15 ML(LIQUITEARS) OU PRN (12:30)
[2021-09-03] MEDS: NS 0.45% 1,000 ML IV SCH ×2 (12:45→20:41)
[2021-09-03] MEDS: ENOXAPARIN 40MG/0.4ML SYRINGE (J1650 PER 10MG) SC SCH (12:45)
[2021-09-03] MEDS: CALCIUM/VITAMIN D 500 MG TAB PO SCH (14:02)
[2021-09-03] MEDS: hydrOXYzine 50 MG TAB PO SCH (20:35)
[2021-09-03] MEDS: PANTOPRAZOLE 40MG TAB (PROTONIX) PO SCH (20:35)
[2021-09-03] MEDS: ZONISAMIDE 100 MG CAP (ZONEGRAN) PO SCH (20:35)
[2021-09-03] MEDS: PREGABALIN 100 MG CAP (LYRICA) PO SCH (20:35)
[2021-09-04] VITALS: O2SAT 95
[2021-09-04] MEDS: cefTRIAXone SOD 1 GM in D5W MINI-BAG PLUS 50 ML IV SCH (03:22)
[2021-09-04 04:00] VITALS: BP 117/71; O2SAT 95
[2021-09-04] MEDS: LEVOTHYROXINE 125MCG TABLET (0.125MG) PO SCH (05:34)
[2021-09-04 06:34] LABS: HEMATOCRIT 29.7 % (36.0-47.0); HEMOGLOBIN 10.1 g/dl (12.0-15.5); MEAN CORPUSCULAR HEMOGLOBIN 27.8 pg (27.0-33.0); MEAN CORPUSCULAR VOLUME 81.8 fl (80.0-96.0); PLATELET COUNT, AUTOMATED 120 10^3/uL (150-450); RED BLOOD COUNT 3.63 10^6/uL (4.00-5.40); WHITE BLOOD COUNT 6.7 10^3/uL (4.0-10.0)
[2021-09-04 06:46] LABS: INR 1.25; PARTIAL THROMBOPLASTIN TIME 30.7 SECONDS (25.9-37.0); PROTHROMBIN TIME 16.1 SECONDS (12.7-14.5)
[2021-09-04 07:00] LABS: ALBUMIN 2.3 GM/DL (3.2-5.2); ALT/SGPT 30 U/L (12-78); BILIRUBIN,DIRECT 0.3 MG/DL (0.0-0.2); BILIRUBIN,TOTAL 0.5 MG/DL (0.2-1.0); BLOOD UREA NITROGEN 21 MG/DL (7-18); CALCIUM LEVEL 7.5 MG/DL (8.8-10.2); CARBON DIOXIDE LEVEL 24 MEQ/L (21-32); CHLORIDE LEVEL 114 MEQ/L (98-107); CREATININE FOR GFR 0.68 MG/DL (0.55-1.30); FERRITIN 604 NG/ML (8-252); GLOMERULAR FILTRATION RATE > 60.0 (>39); GLUCOSE, FASTING 86 MG/DL (70-100); LDH LACTATE DEHYDROGENASE 515 U/L (84-246); MAGNESIUM LEVEL 2.2 MG/DL (1.8-2.4); NT-PRO BNP 1814 PG/ML (<125); POTASSIUM SERUM 3.1 MEQ/L (3.5-5.1); SODIUM LEVEL 144 MEQ/L (136-145); TOTAL PROTEIN 5.3 GM/DL (6.4-8.2)
[2021-09-04] MEDS ORDERED: POTASSIUM CHLORIDE 10MEQ SR TABLET PO ONE ×2 (09:00→12:00)
[2021-09-04] MEDS: ENOXAPARIN 40MG/0.4ML SYRINGE (J1650 PER 10MG) SC SCH (09:40)
[2021-09-04] MEDS: CALCIUM/VITAMIN D 500 MG TAB PO SCH (09:40)
[2021-09-04] MEDS: PREGABALIN 100 MG CAP (LYRICA) PO SCH ×2 (09:40→20:49)
[2021-09-04] MEDS: PANTOPRAZOLE 40MG TAB (PROTONIX) PO SCH ×2 (09:40→20:49)
[2021-09-04] MEDS: CETIRIZINE (ZyrTEC) 10 MG TAB PO SCH (09:40)
[2021-09-04] MEDS: ASPIRIN 81MG ENTERIC TABLET PO SCH (09:40)
[2021-09-04] MEDS: ATORVASTATIN 20 MG TAB PO SCH (09:40)
[2021-09-04] MEDS: FERROUS GLUCONATE 324 MG TAB PO SCH (09:40)
[2021-09-04] MEDS: VITAMIN D 1,000 INTERNATIONAL UNITS TABLET PO SCH (09:40)
[2021-09-04] MEDS: PERCOCET 5MG/325MG TAB PO PRN (09:44)
[2021-09-04] MEDS: CEFDINIR 300 MG CAP (OMNICEF) PO SCH ×2 (11:12→20:49)
[2021-09-04 12:00] VITALS: O2SAT 94
[2021-09-04 14:00] VITALS: BP 117/61
[2021-09-04] MEDS: DOXYCYCLINE HYCLATE 100MG TABLET PO SCH (18:18)
[2021-09-04] MEDS: ACETAMINOPHEN TAB 650MG DOSE (2X325MG) PO PRN (18:18)
[2021-09-04 20:00] VITALS: BP 114/57; O2SAT 93
[2021-09-04] MEDS: ZONISAMIDE 100 MG CAP (ZONEGRAN) PO SCH (20:49)
[2021-09-04] MEDS: hydrOXYzine 50 MG TAB PO SCH (20:49)
[2021-09-05] VITALS: O2SAT 94
[2021-09-05] MEDS: PERCOCET 5MG/325MG TAB PO PRN (03:06)
[2021-09-05 04:00] VITALS: O2SAT 94
[2021-09-05 06:00] VITALS: BP 108/52
[2021-09-05] MEDS: LEVOTHYROXINE 125MCG TABLET (0.125MG) PO SCH (06:05)
[2021-09-05] MEDS: DOXYCYCLINE HYCLATE 100MG TABLET PO SCH ×2 (06:05→17:32)
[2021-09-05 06:15] LABS: HEMATOCRIT 27.7 % (36.0-47.0); HEMOGLOBIN 9.2 g/dl (12.0-15.5); MEAN CORPUSCULAR HEMOGLOBIN 27.5 pg (27.0-33.0); MEAN CORPUSCULAR HGB CONC 33.2 g/dl (32.0-36.5); MEAN CORPUSCULAR VOLUME 82.9 fl (80.0-96.0); PLATELET COUNT, AUTOMATED 122 10^3/uL (150-450); RED BLOOD COUNT 3.34 10^6/uL (4.00-5.40)
[2021-09-05 06:33] LABS: ALBUMIN 2.2 GM/DL (3.2-5.2); ALT/SGPT 29 U/L (12-78); BILIRUBIN,TOTAL 0.7 MG/DL (0.2-1.0); BLOOD UREA NITROGEN 22 MG/DL (7-18); CALCIUM LEVEL 7.7 MG/DL (8.8-10.2); CARBON DIOXIDE LEVEL 22 MEQ/L (21-32); CHLORIDE LEVEL 117 MEQ/L (98-107); CREATININE FOR GFR 0.71 MG/DL (0.55-1.30); GLOMERULAR FILTRATION RATE > 60.0 (>39); GLUCOSE, FASTING 83 MG/DL (70-100); MAGNESIUM LEVEL 1.8 MG/DL (1.8-2.4); POTASSIUM SERUM 3.6 MEQ/L (3.5-5.1); SODIUM LEVEL 146 MEQ/L (136-145); TOTAL PROTEIN 5.3 GM/DL (6.4-8.2)
[2021-09-05] MEDS: PANTOPRAZOLE 40MG TAB (PROTONIX) PO SCH ×2 (09:08→20:51)
[2021-09-05] MEDS: FERROUS GLUCONATE 324 MG TAB PO SCH (09:08)
[2021-09-05] MEDS: PREGABALIN 100 MG CAP (LYRICA) PO SCH ×2 (09:08→20:51)
[2021-09-05] MEDS: ASPIRIN 81MG ENTERIC TABLET PO SCH (09:08)
[2021-09-05] MEDS: CALCIUM/VITAMIN D 500 MG TAB PO SCH (09:08)
[2021-09-05] MEDS: VITAMIN D 1,000 INTERNATIONAL UNITS TABLET PO SCH (09:08)
[2021-09-05] MEDS: CEFDINIR 300 MG CAP (OMNICEF) PO SCH ×2 (09:08→20:50)
[2021-09-05] MEDS: ATORVASTATIN 20 MG TAB PO SCH (09:08)
[2021-09-05] MEDS: CETIRIZINE (ZyrTEC) 10 MG TAB PO SCH (09:08)
[2021-09-05] MEDS: ENOXAPARIN 40MG/0.4ML SYRINGE (J1650 PER 10MG) SC SCH (09:10)
[2021-09-05] MEDS: ACETAMINOPHEN TAB 650MG DOSE (2X325MG) PO PRN (12:01)
[2021-09-05] MEDS ORDERED: FUROSEMIDE 40MG/4ML VIAL (J1940) IV ONE (12:15)
[2021-09-05] MEDS: dexameTHASONE 20MG/5ML VIAL (J1100 PER 1MG) IV SCH (12:35)
[2021-09-05 14:00] VITALS: BP 105/58
[2021-09-05 18:21] VITALS: O2SAT 94
[2021-09-05 20:00] VITALS: BP 105/56
[2021-09-05] MEDS: ZONISAMIDE 100 MG CAP (ZONEGRAN) PO SCH (20:51)
[2021-09-05] MEDS: hydrOXYzine 50 MG TAB PO SCH (20:51)
[2021-09-06] VITALS: BP 112/56
[2021-09-06] MEDS: PERCOCET 5MG/325MG TAB PO PRN (02:07)
[2021-09-06 04:00] VITALS: BP 109/60
[2021-09-06] MEDS: DOXYCYCLINE HYCLATE 100MG TABLET PO SCH (05:35)
[2021-09-06] MEDS: LEVOTHYROXINE 125MCG TABLET (0.125MG) PO SCH (05:35)
[2021-09-06 08:32] LABS: INR 1.21; PROTHROMBIN TIME 15.7 SECONDS (12.7-14.5)
[2021-09-06 08:55] LABS: ALBUMIN 2.6 GM/DL (3.2-5.2); BILIRUBIN,DIRECT 0.3 MG/DL (0.0-0.2); BILIRUBIN,TOTAL 0.8 MG/DL (0.2-1.0); TOTAL PROTEIN 5.7 GM/DL (6.4-8.2)
[2021-09-06] MEDS: PREGABALIN 100 MG CAP (LYRICA) PO SCH (09:39)
[2021-09-06] MEDS: ATORVASTATIN 20 MG TAB PO SCH (09:39)
[2021-09-06] MEDS: FERROUS GLUCONATE 324 MG TAB PO SCH (09:40)
[2021-09-06] MEDS: CEFDINIR 300 MG CAP (OMNICEF) PO SCH (09:40)
[2021-09-06] MEDS: ASPIRIN 81MG ENTERIC TABLET PO SCH (09:40)
[2021-09-06] MEDS: VITAMIN D 1,000 INTERNATIONAL UNITS TABLET PO SCH (09:40)
[2021-09-06] MEDS: PANTOPRAZOLE 40MG TAB (PROTONIX) PO SCH (09:40)
[2021-09-06] MEDS: dexameTHASONE 20MG/5ML VIAL (J1100 PER 1MG) IV SCH (09:41)
[2021-09-06] MEDS: CALCIUM/VITAMIN D 500 MG TAB PO SCH (09:41)
[2021-09-06] MEDS: ENOXAPARIN 40MG/0.4ML SYRINGE (J1650 PER 10MG) SC SCH (09:41)
[2021-09-06] MEDS: CETIRIZINE (ZyrTEC) 10 MG TAB PO SCH (09:41)
[2021-09-06 10:00] VITALS: BP 137/63
[2021-09-06] MEDS ORDERED: PRED10TA2 PO (10:00)
[2021-09-06] MEDS ORDERED: PERCOCET PO (10:02)
[2021-09-06] MEDS ORDERED: REMDESIVIR 100 MG in NS 250 ML IV SCH (18:00)
[2021-09-06] MEDS ORDERED: SODIUM CHLORIDE 0.9% INJ 10 ML SYR IV SCH (18:00)
== END 2021-09-06 16:20 | disposition home health service (06) | DRG 853 ==
LOC: M ED 12:08 → M ED INP 15:51 → M 4MAIN 09-01 17:10
PROVIDERS: ADMIT Internal Medicine; ATTEND Internal Medicine Nephrology
PROC: 0SSFXZZ Reposition Right Ankle Joint, External Approach (ICD-10-PCS; 2021-08-31)
PROC: 0QSJ0ZZ Reposition Right Fibula, Open Approach (ICD-10-PCS; principal; 2021-09-01 13:00)
PROC: XW033E5 Introduction of Remdesivir Anti-infective into Peripheral Vein, Percutaneous Approach, New Technology Group 5 (ICD-10-PCS; 2021-09-05)
PROC: 3E0333Z Introduction of Anti-inflammatory into Peripheral Vein, Percutaneous Approach (ICD-10-PCS; 2021-09-05)
DX: A41.9 Sepsis, unspecified organism (principal); J12.82 Pneumonia due to coronavirus disease 2019; J15.9 Unspecified bacterial pneumonia; U07.1 COVID-19; N17.9 Acute kidney failure, unspecified; E87.1 Hypo-osmolality and hyponatremia; R55 Syncope and collapse; E86.0 Dehydration; R65.20 Severe sepsis without septic shock; E78.5 Hyperlipidemia, unspecified; G89.29 Other chronic pain; S82.851A Displaced trimalleolar fracture of right lower leg, initial encounter for closed fracture; G40.909 Epilepsy, unspecified, not intractable, without status epilepticus; D50.9 Iron deficiency anemia, unspecified; Z79.82 Long term (current) use of aspirin; Z79.899 Other long term (current) drug therapy; Z88.5 Allergy status to narcotic agent; W18.30XA Fall on same level, unspecified, initial encounter; Y92.009 Unspecified place in unspecified non-institutional (private) residence as the place of occurrence of the external cause; Y93.89 Activity, other specified; Y99.8 Other external cause status

== ENCOUNTER → 2021-09-14 | Outpatient (CLI) | payer MEDICARE, MEDICAID ==
[~2021-09-14] MED LIST changes: +ASPI-161 PO; +ATOR40TA75 PO; +BELB75MI BU; +CALCD50TA PO; +CETI-14 PO; +D31000TA2 PO; +FERR32TA PO; +HYDR-3363 PO; +MOBI4TAB PO; +PANT40TA29 PO; +PERCOCET PO; +PRED10TA2 PO; +SYNT125T PO
== END ==
LOC: M SOG 15:32
PROVIDERS: ATTEND Orthopaedic Surgery
DX: Z47.89 Encounter for other orthopedic aftercare (principal)

== ENCOUNTER → 2021-09-26 | Outpatient (CLI) | payer MEDICARE, MEDICAID | LOC: M SOG 08:45 | PROVIDERS: ATTEND Orthopaedic Surgery | DX: S82.851D Displaced trimalleolar fracture of right lower leg, subsequent encounter for closed fracture with routine healing (principal); W18.30XD Fall on same level, unspecified, subsequent encounter; Y92.009 Unspecified place in unspecified non-institutional (private) residence as the place of occurrence of the external cause ==

== ENCOUNTER → 2021-10-10 | Outpatient (CLI) | payer MEDICARE, MEDICAID | LOC: M SOG 08:41 | PROVIDERS: ATTEND Orthopaedic Surgery | DX: S82.851D Displaced trimalleolar fracture of right lower leg, subsequent encounter for closed fracture with routine healing (principal); W18.30XD Fall on same level, unspecified, subsequent encounter ==

== ENCOUNTER → 2021-10-24 | Outpatient (CLI) | payer MEDICARE, MEDICAID ==
[~2021-10-24] MED LIST changes: -D31000TA2 PO; +VITA100093 PO
== END ==
LOC: M SOG 08:01
PROVIDERS: ATTEND Orthopaedic Surgery
DX: S82.851D Displaced trimalleolar fracture of right lower leg, subsequent encounter for closed fracture with routine healing (principal); W18.30XD Fall on same level, unspecified, subsequent encounter

== ENCOUNTER → 2022-03-20 | Outpatient (CLI) | payer MEDICARE, MEDICAID ==
[~2022-03-20] MED LIST changes: +SIMV-253 PO; -ZOCO20TA PO; -ZONI100C17 PO; +ZONI100C67 PO
[2022-03-20 16:02] LABS: BASO # 0.1 10^3/uL (0.0-0.2); BASO % 1.1 % (0.0-1.0); EOS # 0.2 10^3/uL (0.0-0.5); EOS % 3.2 % (0.0-3.0); HEMATOCRIT 40.3 % (36.0-47.0); HEMOGLOBIN 12.9 g/dl (12.0-15.5); LYMPH # 2.3 10^3/uL (1.5-5.0); LYMPH % 43.6 % (24.0-44.0); MEAN CORPUSCULAR HEMOGLOBIN 28.5 pg (27.0-33.0); MONO # 0.5 10^3/uL (0.0-0.8); MONO % 9.1 % (2.0-8.0); NEUTROPHILS # 2.3 10^3/uL (1.5-8.5); PLATELET COUNT, AUTOMATED 161 10^3/uL (150-450); RED BLOOD COUNT 4.53 10^6/uL (4.00-5.40); WHITE BLOOD COUNT 5.3 10^3/uL (4.0-10.0)
[2022-03-20 16:15] LABS: BILIRUBIN,TOTAL 0.6 MG/DL (0.2-1.0); CALCIUM LEVEL 9.4 MG/DL (8.8-10.2); CHOLESTEROL RISK RATIO 2.755 (<5); CREATININE FOR GFR 1.09 MG/DL (0.55-1.30); FREE T4 0.75 NG/DL (0.76-1.46); GLOMERULAR FILTRATION RATE 52.5 (>39); POTASSIUM SERUM 3.9 MEQ/L (3.5-5.1); THYROID STIMULATING HORMONE 7.08 uIU/ML (0.358-3.740); TOTAL PROTEIN 7.5 GM/DL (6.4-8.2)
[2022-03-20 17:28] LABS: TOTAL 25(OH) VITAMIN D 31.7 NG/ML (30.0-100.0)
== END ==
LOC: M PLALAB 12:33
PROVIDERS: ATTEND Nurse Practitioner Family
DX: M51.36 Other intervertebral disc degeneration, lumbar region (principal); M47.816 Spondylosis without myelopathy or radiculopathy, lumbar region; K59.00 Constipation, unspecified; E78.5 Hyperlipidemia, unspecified; I10 Essential (primary) hypertension; E03.9 Hypothyroidism, unspecified; E55.9 Vitamin D deficiency, unspecified; D50.9 Iron deficiency anemia, unspecified; M54.9 Dorsalgia, unspecified; Z79.899 Other long term (current) drug therapy

== ENCOUNTER 2022-04-23 10:15 | Emergency (ER) | payer MEDICARE, MEDICAID ==
[~2022-04-23] VITALS: Ht 160 cm; Wt 67.7 kg
[2022-04-23] MEDS ORDERED: diphenhydrAMINE 50MG/ML VIAL (J1200) IV STA (10:29)
[2022-04-23] MEDS ORDERED: FAMOTIDINE 20MG/2ML VIAL IVP ONE (10:30)
[2022-04-23] MEDS ORDERED: dexameTHASONE 20MG/5ML VIAL (J1100 PER 1MG) IV ONE (10:30)
[2022-04-23 11:25] VITALS: BP 130/65
[2022-04-23] MEDS ORDERED: ACETAMINOPHEN TAB 650MG DOSE (2X325MG) PO ONE (11:30)
== END 2022-04-23 11:37 | disposition home or self-care (01) ==
LOC: M ED 10:15
DX: S60.463A Insect bite (nonvenomous) of left middle finger, initial encounter (principal); W57.XXXA Bitten or stung by nonvenomous insect and other nonvenomous arthropods, initial encounter; Z88.8 Allergy status to other drugs, medicaments and biological substances
CPT/HCPCS: 96374; 96375; 99284; J1100; J1200

== ENCOUNTER → 2022-04-25 | Outpatient (RCR) | payer MEDICARE, MEDICAID | LOC: M PT 04-17 08:16 | PROVIDERS: ATTEND Nurse Practitioner Family | DX: M54.9 Dorsalgia, unspecified (principal) ==

== ENCOUNTER 2022-05-23 09:53 | Outpatient (RCR) | payer MEDICARE, MEDICAID | END 2022-05-25 | LOC: M PT 09:53 | PROVIDERS: ATTEND Nurse Practitioner Family | DX: M54.9 Dorsalgia, unspecified (principal) ==

== ENCOUNTER 2022-06-13 10:00 | Outpatient (RCR) | payer MEDICARE, MEDICAID | END 2022-06-25 | LOC: M PT 10:00 | PROVIDERS: ATTEND Nurse Practitioner Family | DX: M54.9 Dorsalgia, unspecified (principal) ==

== ENCOUNTER 2022-09-30 22:41 | Emergency (ER) | payer MEDICARE, MEDICAID ==
[~2022-09-30] VITALS: Ht 160 cm; Wt 72.4 kg
[~2022-09-30 22:41] MED LIST changes: +AJOV225I; +ALBU8.5H; +LEVO112T2; +MELO7.5T35
[2022-10-01 02:27] VITALS: BP 138/65
== END 2022-10-01 05:39 | disposition left against medical advice (07) ==
LOC: M ED 22:41
DX: Z53.21 Procedure and treatment not carried out due to patient leaving prior to being seen by health care provider (principal)

== ENCOUNTER → 2022-10-04 | Outpatient (CLI) | payer MEDICARE, MEDICAID | LOC: M LABSMTC 09:11 | PROVIDERS: ATTEND Anesthesiology | DX: Z01.812 Encounter for preprocedural laboratory examination (principal); Z20.822 Contact with and (suspected) exposure to COVID-19 ==

== ENCOUNTER 2022-10-08 08:56 | Day surgery (SDC) | payer MEDICARE, MEDICAID ==
[~2022-10-08] VITALS: Ht 160 cm; Wt 68.9 kg
[~2022-10-08 08:56] MED LIST changes: +NS 1,000 ML IV ONE
[2022-10-08] MEDS ORDERED: LIDOCAINE 2% 100MG/5ML SDV (FOR ANES.) As Ordered ONE (10:36)
[2022-10-08] MEDS ORDERED: propofoL 200 MG/20 ML VIAL As Ordered ONE (10:36)
[2022-10-08 11:15] VITALS: BP 155/78
== END 2022-10-08 13:26 | disposition home or self-care (01) ==
LOC: M OPP 08:56
PROVIDERS: ATTEND Internal Medicine Gastroenterology
DX: Z86.010 Personal history of colon polyps (principal); K64.0 First degree hemorrhoids; K57.30 Diverticulosis of large intestine without perforation or abscess without bleeding; I10 Essential (primary) hypertension; E03.9 Hypothyroidism, unspecified; E78.00 Pure hypercholesterolemia, unspecified; G43.909 Migraine, unspecified, not intractable, without status migrainosus; D50.9 Iron deficiency anemia, unspecified; Z79.02 Long term (current) use of antithrombotics/antiplatelets; Z79.1 Long term (current) use of non-steroidal anti-inflammatories (NSAID); Z79.51 Long term (current) use of inhaled steroids; Z79.82 Long term (current) use of aspirin; Z79.890 Hormone replacement therapy; Z79.899 Other long term (current) drug therapy; Z88.5 Allergy status to narcotic agent

== ENCOUNTER → 2022-11-14 | Outpatient (CLI) | payer MEDICARE, MEDICAID ==
[~2022-11-14] MED LIST changes: -NS 1,000 ML IV ONE
[2022-11-14 11:53] LABS: CALCIUM LEVEL 9.1 MG/DL (8.3-10.6); CREATININE FOR GFR 0.98 MG/DL (0.55-1.30); GLOMERULAR FILTRATION RATE 59.4 (>39); POTASSIUM SERUM 4.8 MMOL/L (3.5-5.1)
[2022-11-14 11:57] LABS: TOTAL 25(OH) VITAMIN D 43.7 NG/ML (20.0-100.0)
== END ==
LOC: M PLALAB 07:55
PROVIDERS: ATTEND Internal Medicine
DX: E55.9 Vitamin D deficiency, unspecified (principal)

== ENCOUNTER → 2022-11-14 | Outpatient (CLI) | payer MEDICARE, MEDICAID ==
[2022-11-14 11:49] LABS: BASO % 0.6 % (0.0-1.0); EOS # 0.2 10^3/uL (0.0-0.5); EOS % 3.7 % (0.0-3.0); HEMATOCRIT 40.7 % (36.0-47.0); HEMOGLOBIN 13.2 g/dl (12.0-15.5); LYMPH # 3.1 10^3/uL (1.5-5.0); LYMPH % 47.1 % (24.0-44.0); MEAN CORPUSCULAR HEMOGLOBIN 28.6 pg (27.0-33.0); MEAN CORPUSCULAR HGB CONC 32.4 g/dl (32.0-36.5); MEAN CORPUSCULAR VOLUME 88.1 fl (80.0-96.0); MONO # 0.6 10^3/uL (0.0-0.8); MONO % 9.7 % (2.0-8.0); NEUTROPHILS # 2.5 10^3/uL (1.5-8.5); NEUTROPHILS % 38.7 % (36.0-66.0); PLATELET COUNT, AUTOMATED 184 10^3/uL (150-450); RED BLOOD COUNT 4.62 10^6/uL (4.00-5.40); WHITE BLOOD COUNT 6.5 10^3/uL (4.0-10.0)
[2022-11-14 11:58] LABS: ALBUMIN 3.7 G/DL (3.2-5.2); BILIRUBIN,TOTAL 0.6 MG/DL (0.3-1.2); CALCIUM LEVEL 9.2 MG/DL (8.3-10.6); CHOLESTEROL RISK RATIO 2.55 (<5); FERRITIN 122.7 NG/ML (7.3-270.7); HDL CHOLESTEROL 40.3 MG/DL (>40); LDL CHOLESTEROL 45.1 MG/DL (<100); NON-HDL-C 62.7 MG/DL; POTASSIUM SERUM 4.8 MMOL/L (3.5-5.1); TOTAL 25(OH) VITAMIN D 44.4 NG/ML (20.0-100.0); TOTAL PROTEIN 6.5 G/DL (5.7-8.2)
== END ==
LOC: M PLALAB 07:49
PROVIDERS: ATTEND Nurse Practitioner Family
DX: I10 Essential (primary) hypertension (principal); D50.9 Iron deficiency anemia, unspecified; E55.9 Vitamin D deficiency, unspecified

== ENCOUNTER → 2022-12-19 | Outpatient (CLI) | payer MEDICARE, MEDICAID ==
[~2022-12-19] MED LIST changes: -AKWASOL OU; +ARTIDRO2 OU; -ORPH100T2 PO; +ORPH100T48 PO
== END ==
LOC: M WHC 09:56
PROVIDERS: ATTEND Nurse Practitioner Family
DX: Z12.31 Encounter for screening mammogram for malignant neoplasm of breast (principal)

== ENCOUNTER → 2022-12-19 | Outpatient (REF) | payer MEDICARE, MEDICAID | LOC: M PLALAB 11:14 | PROVIDERS: ATTEND Nurse Practitioner Family | DX: Z12.4 Encounter for screening for malignant neoplasm of cervix (principal) ==

== ENCOUNTER 2023-02-14 11:58 | Emergency (ER) | payer MEDICARE, MEDICAID ==
[~2023-02-14] VITALS: Ht 160 cm; Wt 72.0 kg
[~2023-02-14 11:58] MED LIST changes: +MELA1DRO PO; -MELA1LIQ PO
[2023-02-14 14:09] VITALS: BP 124/67; TEMP 97.6; O2SAT 97
== END 2023-02-14 14:12 | disposition home or self-care (01) ==
LOC: M ED 11:58
DX: S93.411A Sprain of calcaneofibular ligament of right ankle, initial encounter (principal); M54.50 Low back pain, unspecified; Z88.5 Allergy status to narcotic agent; Z79.52 Long term (current) use of systemic steroids; Z79.02 Long term (current) use of antithrombotics/antiplatelets; Z79.899 Other long term (current) drug therapy

== ENCOUNTER → 2023-04-08 | Outpatient (CLI) | payer MEDICARE, MEDICAID ==
[2023-04-08 15:56] LABS: ALBUMIN 3.5 G/DL (3.2-5.2); BILIRUBIN,TOTAL 0.7 MG/DL (0.3-1.2); CALCIUM LEVEL 8.9 MG/DL (8.3-10.6); CHOLESTEROL RISK RATIO 2.68 (<5); CREATININE FOR GFR 1.01 MG/DL (0.55-1.30); GLOMERULAR FILTRATION RATE 57.2 (>39); POTASSIUM SERUM 4.4 MMOL/L (3.5-5.1); TOTAL PROTEIN 6.8 G/DL (5.7-8.2)
[2023-04-08 16:00] LABS: THYROID STIMULATING HORMONE 0.099 uIU/ML (0.55-4.78)
[2023-04-08 16:01] LABS: TOTAL 25(OH) VITAMIN D 40.8 NG/ML (20.0-100.0)
[2023-04-08 16:02] LABS: FREE T4 1.58 NG/DL (0.89-1.76)
[2023-04-08 16:32] LABS: BASO # 0.1 10^3/uL (0.0-0.2); BASO % 0.5 % (0.0-1.0); EOS # 0.2 10^3/uL (0.0-0.5); EOS % 2.4 % (0.0-3.0); HEMATOCRIT 39.5 % (36.0-47.0); HEMOGLOBIN 12.8 g/dl (12.0-15.5); LYMPH # 2.9 10^3/uL (1.5-5.0); LYMPH % 31.8 % (24.0-44.0); MEAN CORPUSCULAR HEMOGLOBIN 27.9 pg (27.0-33.0); MEAN CORPUSCULAR HGB CONC 32.4 g/dl (32.0-36.5); MEAN CORPUSCULAR VOLUME 86.2 fl (80.0-96.0); MONO # 0.8 10^3/uL (0.0-0.8); MONO % 8.3 % (2.0-8.0); NEUTROPHILS # 5.2 10^3/uL (1.5-8.5); NEUTROPHILS % 56.8 % (36.0-66.0); PLATELET COUNT, AUTOMATED 163 10^3/uL (150-450); RED BLOOD COUNT 4.58 10^6/uL (4.00-5.40); WHITE BLOOD COUNT 9.2 10^3/uL (4.0-10.0)
[2023-04-08 17:46] LABS: HEMOGLOBIN A1c 5.5 % (4.0-6.0)
== END ==
LOC: M PLALAB 13:02
PROVIDERS: ATTEND Nurse Practitioner Family
DX: I10 Essential (primary) hypertension (principal); E78.5 Hyperlipidemia, unspecified; E03.9 Hypothyroidism, unspecified; D50.9 Iron deficiency anemia, unspecified; E55.9 Vitamin D deficiency, unspecified; Z79.899 Other long term (current) drug therapy

== ENCOUNTER → 2023-07-16 | Outpatient (CLI) | payer MEDICARE, MEDICAID ==
[2023-07-16 18:23] LABS: BASO # 0.1 10^3/uL (0.0-0.2); BASO % 0.8 % (0.0-1.0); EOS # 0.2 10^3/uL (0.0-0.5); EOS % 2.6 % (0.0-3.0); HEMATOCRIT 39.9 % (36.0-47.0); HEMOGLOBIN 13.1 g/dl (12.0-15.5); LYMPH # 3.7 10^3/uL (1.5-5.0); MEAN CORPUSCULAR HEMOGLOBIN 27.8 pg (27.0-33.0); MEAN CORPUSCULAR HGB CONC 32.8 g/dl (32.0-36.5); MEAN CORPUSCULAR VOLUME 84.7 fl (80.0-96.0); MONO # 0.5 10^3/uL (0.0-0.8); MONO % 6.8 % (2.0-8.0); NEUTROPHILS # 2.8 10^3/uL (1.5-8.5); NEUTROPHILS % 38.7 % (36.0-66.0); PLATELET COUNT, AUTOMATED 161 10^3/uL (150-450); RED BLOOD COUNT 4.71 10^6/uL (4.00-5.40); WHITE BLOOD COUNT 7.3 10^3/uL (4.0-10.0)
[2023-07-16 18:33] LABS: PERCENT SATURATION 25.9 % (13.2-45.0)
[2023-07-16 18:34] LABS: ALBUMIN 3.6 G/DL (3.2-5.2); BILIRUBIN,TOTAL 0.8 MG/DL (0.3-1.2); CALCIUM LEVEL 9.2 MG/DL (8.3-10.6); CHOLESTEROL RISK RATIO 3.02 (<5); CREATININE FOR GFR 1.05 MG/DL (0.55-1.30); GLOMERULAR FILTRATION RATE 54.7 (>39); HDL CHOLESTEROL 38.4 MG/DL (>40); LDL CHOLESTEROL 56.8 MG/DL (<100); NON-HDL-C 77.6 MG/DL; POTASSIUM SERUM 4.3 MMOL/L (3.5-5.1); TOTAL 25(OH) VITAMIN D 48.5 NG/ML (20.0-100.0); TOTAL PROTEIN 6.8 G/DL (5.7-8.2)
== END ==
LOC: M PLALAB 07-15 16:16
PROVIDERS: ATTEND Nurse Practitioner Family
DX: I10 Essential (primary) hypertension (principal); D50.9 Iron deficiency anemia, unspecified

== ENCOUNTER → 2024-03-11 | Outpatient (CLI) | payer MEDICARE, MEDICAID ==
[~2024-03-11] MED LIST changes: -ASPI-161 PO; +ASPI-615 PO
[2024-03-11 15:45] LABS: BASO # 0.1 10^3/uL (0.0-0.2); BASO % 0.8 % (0.0-1.0); EOS # 0.1 10^3/uL (0.0-0.5); EOS % 1.8 % (0.0-3.0); HEMATOCRIT 39.5 % (36.0-47.0); HEMOGLOBIN 13.2 g/dl (12.0-15.5); LYMPH # 2.4 10^3/uL (1.5-5.0); LYMPH % 36.4 % (24.0-44.0); MEAN CORPUSCULAR HEMOGLOBIN 27.5 pg (27.0-33.0); MEAN CORPUSCULAR HGB CONC 33.4 g/dl (32.0-36.5); MEAN CORPUSCULAR VOLUME 82.3 fl (80.0-96.0); MONO # 0.7 10^3/uL (0.0-0.8); MONO % 11.1 % (2.0-8.0); NEUTROPHILS # 3.3 10^3/uL (1.5-8.5); NEUTROPHILS % 49.7 % (36.0-66.0); PLATELET COUNT, AUTOMATED 189 10^3/uL (150-450); WHITE BLOOD COUNT 6.6 10^3/uL (4.0-10.0)
[2024-03-11 16:28] LABS: ALBUMIN 3.9 G/DL (3.2-5.2); BILIRUBIN,TOTAL 0.8 MG/DL (0.3-1.2); CALCIUM LEVEL 9.4 MG/DL (8.3-10.6); CHOLESTEROL RISK RATIO 3.36 (<5); CREATININE FOR GFR 1.07 MG/DL (0.55-1.30); FREE T4 1.73 NG/DL (0.89-1.76); GLOMERULAR FILTRATION RATE 53.4 (>39); HDL CHOLESTEROL 30.6 MG/DL (>40); LDL CHOLESTEROL 56.2 MG/DL (<100); NON-HDL-C 72.4 MG/DL; POTASSIUM SERUM 3.6 MMOL/L (3.5-5.1); THYROID STIMULATING HORMONE 0.131 uIU/ML (0.55-4.78); TOTAL PROTEIN 7.1 G/DL (5.7-8.2)
== END ==
LOC: M PLALAB 12:03
PROVIDERS: ATTEND Nurse Practitioner Family
DX: E78.5 Hyperlipidemia, unspecified (principal); I10 Essential (primary) hypertension; E03.9 Hypothyroidism, unspecified; D50.9 Iron deficiency anemia, unspecified; E55.9 Vitamin D deficiency, unspecified

== ENCOUNTER → 2024-11-17 | Outpatient (REF) | payer MEDICARE, MEDICAID ==
[~2024-11-17] MED LIST changes: +NAPR-1405 PO; -NAPR500T6 PO
[2024-11-19 01:10] LABS: AMPHETAMINE SCREEN, URINE Negative ng/mL (Cutoff=1000); BARBITURATES SCREEN, URINE Negative ng/mL (Cutoff=200); BENZODIAZEPINES, URINE SCREEN Negative ng/mL (Cutoff=200); CANNABINOID SCREEN, URINE Negative ng/mL (Cutoff=20); COCAINE SCREEN, URINE Negative ng/mL (Cutoff=300); CREATININE, URINE 60.3 mg/dL (20.0-300.0); METHADONE, URINE SCREEN Negative ng/mL (Cutoff=300); OPIATE SCREEN, URINE Negative ng/mL (Cutoff=300); OXYCODONE, SCREEN, URINE Negative ng/mL (Cutoff=100); PCP SCREEN, URINE Negative ng/mL (Cutoff=25); SPECIFIC GRAVITY, URINE 1.011 (.); pH, URINE 6.1 (4.5-8.9)
== END ==
LOC: M SFHCPLAZ 12:47
PROVIDERS: ATTEND Nurse Practitioner Family
DX: M54.9 Dorsalgia, unspecified (principal)

== ENCOUNTER → 2024-11-23 | Outpatient (CLI) | payer MEDICARE, MEDICAID ==
[2024-11-23 13:52] LABS: BASO # 0.1 10^3/uL (0.0-0.2); BASO % 0.9 % (0.0-1.0); EOS # 0.2 10^3/uL (0.0-0.5); EOS % 2.8 % (0.0-3.0); HEMATOCRIT 38.8 % (36.0-47.0); HEMOGLOBIN 12.6 g/dl (12.0-15.5); LYMPH # 2.9 10^3/uL (1.5-5.0); LYMPH % 38.7 % (24.0-44.0); MEAN CORPUSCULAR HEMOGLOBIN 28.1 pg (27.0-33.0); MEAN CORPUSCULAR HGB CONC 32.5 g/dl (32.0-36.5); MEAN CORPUSCULAR VOLUME 86.4 fl (80.0-96.0); MONO # 0.7 10^3/uL (0.0-0.8); MONO % 9.1 % (2.0-8.0); NEUTROPHILS # 3.6 10^3/uL (1.5-8.5); NEUTROPHILS % 48.2 % (36.0-66.0); PLATELET COUNT, AUTOMATED 232 10^3/uL (150-450); RED BLOOD COUNT 4.49 10^6/uL (4.00-5.40); WHITE BLOOD COUNT 7.4 10^3/uL (4.0-10.0)
[2024-11-23 13:57] LABS: FREE T4 1.53 NG/DL (0.89-1.76); THYROID STIMULATING HORMONE 0.287 uIU/ML (0.55-4.78)
[2024-11-23 14:01] LABS: TOTAL IRON BINDING CAPACITY 287 UG/DL (250-425)
[2024-11-23 14:04] LABS: ALBUMIN 3.8 G/DL (3.2-5.2); ALKALINE PHOSPHATASE 79 U/L (35-104); ALT/SGPT 32 U/L (7.0-40); AST/SGOT 28 U/L (<34); BILIRUBIN,TOTAL 0.8 MG/DL (0.3-1.2); BLOOD UREA NITROGEN 21 MG/DL (9-23); CALCIUM LEVEL 9.1 MG/DL (8.3-10.6); CARBON DIOXIDE LEVEL 26 MMOL/L (20-31); CHLORIDE LEVEL 108 MMOL/L (98-107); CHOLESTEROL LEVEL 124 MG/DL (<200); CHOLESTEROL RISK RATIO 2.93 (<5); CREATININE FOR GFR 0.94 MG/DL (0.55-1.30); GLOMERULAR FILTRATION RATE > 60.0 (>39); GLUCOSE, FASTING 87 MG/DL (74-106); HDL CHOLESTEROL 42.3 MG/DL (>40); IRON (FE) 68 UG/DL (50-170); LDL CHOLESTEROL 62.7 MG/DL (<100); NON-HDL-C 81.7 MG/DL; PERCENT SATURATION 23.7 % (13.2-45.0); POTASSIUM SERUM 4.2 MMOL/L (3.5-5.1); SODIUM LEVEL 144 MMOL/L (136-145); TOTAL PROTEIN 7.4 G/DL (5.7-8.2); TRIGLYCERIDES LEVEL 95 MG/DL (<150)
== END ==
LOC: M PLALAB 10:41
PROVIDERS: ATTEND Nurse Practitioner Family
DX: I10 Essential (primary) hypertension (principal); E78.5 Hyperlipidemia, unspecified; D50.9 Iron deficiency anemia, unspecified

== ENCOUNTER → 2025-07-19 | Outpatient (CLI) | payer MEDICARE, MEDICAID ==
[~2025-07-19] MED LIST changes: +PREG-35 PO; -PREG100CA PO
[2025-07-19 17:54] LABS: BASO # 0.0 10^3/uL (0.0-0.2); BASO % 0.4 % (0.0-1.0); EOS # 0.2 10^3/uL (0.0-0.5); EOS % 2.2 % (0.0-3.0); LYMPH # 2.8 10^3/uL (1.5-5.0); LYMPH % 39.4 % (24.0-44.0); MONO # 0.6 10^3/uL (0.0-0.8); MONO % 8.8 % (2.0-8.0); NEUTROPHILS # 3.5 10^3/uL (1.5-8.5); NEUTROPHILS % 48.9 % (36.0-66.0); PLATELET COUNT, AUTOMATED 194 10^3/uL (150-450)
[2025-07-19 18:00] LABS: ALT/SGPT 19.0 U/L (7.0-40); AST/SGOT 27.0 U/L (<34); CALCIUM LEVEL 9.2 MG/DL (8.3-10.6); CARBON DIOXIDE LEVEL 26.0 MMOL/L (20-31); CHLORIDE LEVEL 106.0 MMOL/L (98-107); CHOLESTEROL LEVEL 105.0 MG/DL (<200); CHOLESTEROL RISK RATIO 2.54 (<5); CREATININE FOR GFR 0.94 MG/DL (0.55-1.30); GLOMERULAR FILTRATION RATE 63.3 (>39); IRON (FE) 48.0 UG/DL (50-170); LDL CHOLESTEROL 48.5 MG/DL (<100); MAGNESIUM LEVEL 1.9 MG/DL (1.8-2.4); NON-HDL-C 63.7 MG/DL; PERCENT SATURATION 17.8 % (13.2-45.0); POTASSIUM SERUM 4.1 MMOL/L (3.5-5.1); PTH INTACT 51.3 PG/ML (18.5-88.0); SODIUM LEVEL 142.0 MMOL/L (136-145); TRIGLYCERIDES LEVEL 76.0 MG/DL (<150)
[2025-07-19 18:01] LABS: FREE T4 1.52 NG/DL (0.89-1.76)
[2025-07-19 18:02] LABS: TOTAL 25(OH) VITAMIN D 37.0 NG/ML (20.0-100.0); VITAMIN B12 LEVEL 351.0 PG/ML (211-911)
== END ==
LOC: M PLALAB 14:41
PROVIDERS: ATTEND Nurse Practitioner Family
DX: I10 Essential (primary) hypertension (principal); E55.9 Vitamin D deficiency, unspecified; E53.8 Deficiency of other specified B group vitamins; D50.9 Iron deficiency anemia, unspecified; E78.5 Hyperlipidemia, unspecified